=== PATIENT | female | born 1990 | race Caucasian/White ===

== ENCOUNTER 2017-07-11 07:48 | Emergency (ER) | payer BC, SELFPAY ==
[2017-07-11 07:49] VITALS: BP 123/97; PULSE 68; RESP 16; TEMP 36.9; O2SAT 100; BMI 29.2
[2017-07-11 08:22] LABS: Absolute Lymphocyte Count 1.64 X10^3/ul (0.83-4.51); Absolute Neutrophil Count 7.8 X10^3/uL (2.0-7.7); Basophil# 0.03 X10^3/uL; Basophil% 0.3 % (0-1); Eosinophil# 0.21 X10^3/uL; Hematocrit 39.1 % (37-47); Hemoglobin 13.3 g/dl (12.0-15.0); Lymphocyte # 1.64 X10^3/ul (4.0); Lymphocyte % 15.6 % (19-41); Mean Corpuscular Hgb 28.9 pg (27.0-32.0); Mean Corpuscular Volume 84.8 fL (81-99); Mean Platelet Vol. 10.1 fl (6.2-12.0); Monocyte# 0.81 X10^3/uL; Monocyte% 7.7 % (0-10); Neutrophil # 7.75 X10^3/uL (2.7-7.7); Platelet Count 316 K/mm3 (150-450); RBC Distribution Width CV 12.6 % (11.6-14.6); RBC Distribution Width SD 38.1 fl (35.1-43.9); Red Blood Count 4.61 M/mm3 (4.2-5.4); White Blood Count 10.5 K/mm3 (4.4-11.0)
[2017-07-11 08:23] LABS: POSITIVE COUNT NO; POSITIVE DIFFERENTIAL NO; POSITIVE MORPHOLOGY NO
--- NOTE | 2017-07-11 08:29 | ED.VISSUMM ---
- ER Visit Summary Date of Service: 07/11/17 Chief Complaint: Pain swelling anterior neck History of Present Illness: The patient is a 26 F who presents because of pain and swelling anterior neck. The triage note was read. Patient was asked specifically if there is change in voice she and her mother state no. She has had no drooling. When she replied she had difficulty swallowing, she was asked to clarify. She states the anterior portion of her neck feels full and tight when she swallows. She is able to swallow. There is discomfort when she swallows. She has had no discomfort or difficulty breathing. She denies any dental pain. She denies any pain tip of her tongue. She denies difficulty opening or closing her mouth completely. There is no history rheumatic fever, murmur, MVP, SBE or being on any meds that are immunosuppressive. She denies history of IV drug use. She is presently taken amoxicillin for otitis media. She was seen at the [facility] urgent care last evening and diagnosed with otitis media. She denies any ear pain. She denies rhinorrhea or postnasal drainage. She denies fever, chills or night sweats. She denies any recent illness. She denies any double vision, blurred vision or loss of vision. She denies chest pain or palpitations. She denies shortness of breath, dyspnea or cough. Physical Examination: Vital signs are unremarkable. Blood pressure is slightly elevated 123/97. She is anxious. Mother states she has history of anxiety attacks. Head is atraumatic and cephalic. Pupils equal round reactive. Extraocular muscles are intact. TMs are pearly white with climax noted. There may be slight retraction of the left TM. The left auditory canal is slightly red. There is no discomfort portion of the tragus or pulling on the auricle. There is no preauricular lymphadenopathy. Nares patent without drainage or abnormality. Uvula is midline with no erythema or exudate of posterior pharynx. There is no trismus. Trachea is midline and there is no discomfort with movement. There is no stridor to auscultation. There is a palpable mass submental region that is firm smooth mobile and tender. Heart is regular without murmur, gallop or rub. S1 and S2 are normal. Lungs are clear to auscultation with good movement of air bilaterally. There is no overlying evidence of cellulitis. Test Results: CBC is unremarkable. There are 75% segs no bands with a normal white count. Emergency Department Course and Treatment: Since patient is allergic to azithromycin she was administered 200 mg of clindamycin IV piggyback. CBC was obtained. Differential would include submental lymphadenopathy, sialolithiasis. Doubt Lui's angina since the floor the mouth is not firm and the tongue is not raised. Furthermore, she does not have any dental pain and there is no obvious dental pathology. Treatment Plan: Patient was reassessed at 0855. She is no longer crying. She is talking without any difficulty. She was informed that she would be placed on antibiotic. In the event that this is secondary to a stone in her salivary gland recommended lemon drops. Disposition: Discharged to home with prescription for clindamycin, appropriate home-going instructions and outpatient follow-up. Impression: Submental lymphadenopathy This note was generated with [employer] dictation software. It may contain incorrect words, spelling, and punctuation that were not noted in review of the chart prior to signing ED Disposition - Plan for ED Patient: Disposition: Home or Assisted Living Chief Complaint: Sore Throat Instructions: ED Cervical Adenitis Abx Tx, ED Sublingual Gland Obstruction Prescriptions: Clindamycin HCl 300 mg PO 4X/DAY #30 cap Referrals: Evelyn Disla MD [Primary Care Provider] - 2 Days Additional Instructions: Return if there is a change in your voice, you feel your tongue is elevated, inability to open or close her mouth completely, difficulty swallowing your own secretions or difficulty breathing/noisy breathing.
[2017-07-11 09:56] VITALS: BP 125/74; PULSE 81; RESP 16; O2SAT 98
--- NOTE | 2017-07-11 09:56 | ED.RN ---
THIS NURSE REVIEWED D/C INSTRUCTIONS WITH PT. PT VERBALIZED UNDERSTANDING OF INSTRUCTIONS. IV D/C. IV CATHETER INTACT. PT TOLERATED WELL. PT DENIES FURTHER NEEDS OR QUESTION AT THIS TIME.
== END 2017-07-11 09:57 | disposition home or self-care (01) ==
PROVIDERS: Emergency Provider Emergency Medicine; Family Provider Internal Medicine; PCP Internal Medicine
DX: R59.0 Localized enlarged lymph nodes (principal); H66.90 Otitis media, unspecified, unspecified ear; F41.0 Panic disorder [episodic paroxysmal anxiety]; Z88.1 Allergy status to other antibiotic agents
CPT/HCPCS: 85025; 96365; 99283; J7050; A4216

== ENCOUNTER 2017-07-11 21:30 | Emergency (ER) | payer BC, SELFPAY ==
[2017-07-11 21:30] VITALS: BP 149/74; PULSE 93; RESP 20; TEMP 36.9; O2SAT 100; BMI 29.7
[2017-07-11 21:46] VITALS: PULSE 71; RESP 24; O2SAT 100
--- NOTE | 2017-07-11 21:51 | EKG12_ITS ---
Test Reason : CP Blood Pressure : / mmHG Vent. Rate : 076 BPM Atrial Rate : 076 BPM P-R Int : 144 ms QRS Dur : 078 ms QT Int : 372 ms P-R-T Axes : 066 041 040 degrees QTc Int : 418 ms Normal sinus rhythm with sinus arrhythmia Normal ECG Confirmed by SU BRODERICK, CHEYENNE ([id number]), offline editor IZABELA TAPIA ([id number] on 07/14/2017 1:25:59 PM Referred By: DYLAN Confirmed By:CHEYENNE BLUE MD
--- NOTE | 2017-07-11 21:51 | RAD_ITS ---
STUDY: X-RAY CHEST REASON FOR EXAM: Female, 26 years old. Chest pain and difficulty breathing. TECHNIQUE: PA and lateral views of the chest. COMPARISON: June 02, 2014. FINDINGS: Cardiac monitoring leads are present. The lungs are clear and hyperexpanded. There is no demonstrated pleural abnormality. Normal size heart. Normal mediastinum and jacques. There is prominence of the pulmonary hilar arteries without peripheral pulmonary vascular congestion. Normal visualized aortic arch and descending thoracic aorta. Normal visualized thoracic spine. Normal visualized ribs, clavicles, and shoulders. There is no demonstrated abnormality of the visualized soft tissue structures of the upper abdomen. RAD/Chest PA and Lateral IMPRESSION: No radiographic evidence of acute cardiopulmonary disease. Electronically Signed: Emily Angel MD at 23:19 EDT , Service support ,
--- NOTE | 2017-07-11 22:01 | NURSING ---
NO OLD EKG
[2017-07-11] MEDS: 0.9% Normal Saline 1,000 ML 150 ML IV (22:12)
[2017-07-11] MEDS: Ondansetron 4 MG/2 ML Vial IV (22:16)
[2017-07-11] MEDS: Morphine 4 MG/ML Syringe IV (22:16)
[2017-07-11 22:23] LABS: Basophil# 0.03 X10^3/uL; Basophil% 0.2 % (0-1); Eosinophil# 0.16 X10^3/uL; Eosinophils% 1.2 % (0-5); Hematocrit 39.1 % (37-47); Hemoglobin 13.6 g/dl (12.0-15.0); Lymphocyte % 12.6 % (19-41); Mean Corp Hgb Conc 34.8 g/gl (32-36); Mean Corpuscular Hgb 29.4 pg (27.0-32.0); Mean Corpuscular Volume 84.6 fL (81-99); Mean Platelet Vol. 10.2 fl (6.2-12.0); Monocyte# 0.57 X10^3/uL; Monocyte% 4.2 % (0-10); Neutrophil # 10.96 X10^3/uL (2.7-7.7); Neutrophil % 81.3 % (47-70); Platelet Count 334 K/mm3 (150-450); RBC Distribution Width CV 12.6 % (11.6-14.6); RBC Distribution Width SD 38.1 fl (35.1-43.9); Red Blood Count 4.62 M/mm3 (4.2-5.4); White Blood Count 13.5 K/mm3 (4.4-11.0)
[2017-07-11 22:31] LABS: POSITIVE COUNT NO; POSITIVE DIFFERENTIAL NO; POSITIVE MORPHOLOGY NO
[2017-07-11 22:40] LABS: AST(SGOT) 21 U/L (15-37); Alanine Aminotransfer ALT/SGPT 22 U/L (13-56); Albumin, Serum 3.9 g/dL (3.2-5.0); Alkaline Phosphatase 69 U/L (45-117); Anion Gap 10 (5-15); BUN 9 mg/dL (7-18); BUN/Creat Ratio 14.5 RATIO (10-20); Bilirubin, Direct 0.18 mg/dL (0.00-0.30); Chloride 104 mmol/L (98-107); Creatinine, Serum 0.62 mg/dL (0.55-1.02); EST Glomerular Filtration Rate 123 mL/min (>60); Est Glom Filt Rate - Afr Amer 149 mL/min (>60); Estimated Creatinine Clearance 103.76 ml/min; Globulin 3.8 g/dL (2.2-4.2); Glucose 131 mg/dL (74-106); Lipase 219 U/L (73-393); Potassium 3.4 mmol/L (3.5-5.1); Protein, Total 7.7 g/dL (6.4-8.2); Sodium Level 139 mmol/L (136-145)
[2017-07-11 22:43] LABS: Pregnancy, Serum, hCG Quali. NEGATIVE Negative (0-9 Nonpreg)
--- NOTE | 2017-07-11 23:19 | ED.VISSUMM ---
- ER Visit Summary Date of Service: 07/11/17 Chief Complaint: Chest pain and shortness of breath History of Present Illness: The patient is a 26 F reports onset of shortness of breath and chest pain around noon today. Patient points to the epigastric area and up into the sternum region. Patient was seen in the ER this morning for swelling in the anterior neck. She was diagnosed with some mental lymphadenopathy and encouraged to eat lemon candy and was prescribed clindamycin. Patient states that she took 1 dose of clindamycin here in the emergency this morning and 2 more doses at home. Pain started around noon but worsened tonight when she took another dose of clindamycin before bed. Past history is significant for anxiety. Physical Examination: Blood pressure is 149/74, temperature 98.5, heart rate 93, respiratory rate 20, pulse ox 100% on room air. Patient's lying back with her head elevated approximately 45?. She speaking with a strong voice. Head neck examination does reveal moderate swelling along the undersurface of her chin. She has no tongue edema. There is no tongue elevation. She has strong voice and is tolerating secretions well. Heart is regular rate and rhythm. Lung sounds are clear. Abdomen is soft with tenderness in the epigastric region. There is no guarding or rebound. Lower external examination was no calf tenderness or edema. Patient is alert and conversant. Test Results: EKG is sinus at 76 with no sign of acute ischemia. Two-view chest x-ray is normal. CBC was a white count 13.5 with 81% neutrophils. Chemistry studies are significant for potassium of 3.4 and a glucose of 131. LFTs and lipase are normal. test is negative. Emergency Department Course and Treatment: On repeat evaluation patient is resting comfortably. Head of the bed is still elevated approximately 45? and she is tolerating secretions well and has a strong voice. I believe her symptoms tonight are secondary to gastritis triggered from the clindamycin. She does state that she is taking with food, the patient's symptoms progressively worsened with each dose of clindamycin. She will be switched to penicillin. Encouraged to eat lemon candies. She is referred to ENT for follow-up as needed. Test results were discussed with the patient and mother at bedside who are all in agreement with the plan. Treatment Plan: [] Disposition: Discharge Impression: 1. Gastritis with reflux 2. Submental lymphadenopathy This note was generated with [employer] dictation software. It may contain incorrect words, spelling, and punctuation that were not noted in review of the chart prior to signing ED Disposition - Plan for ED Patient: Chief Complaint: Chest Pain Referrals: Evelyn Disla MD [Primary Care Provider] -
--- NOTE | 2017-07-11 23:23 | ED.DCSUM_ITS ---
- ER Visit Summary Date of Service: 07/11/17 Chief Complaint: Chest pain and shortness of breath History of Present Illness: The patient is a 26 F reports onset of shortness of breath and chest pain around noon today. Patient points to the epigastric area and up into the sternum region. Patient was seen in the ER this morning for swelling in the anterior neck. She was diagnosed with some mental lymphadenopathy and encouraged to eat lemon candy and was prescribed clindamycin. Patient states that she took 1 dose of clindamycin here in the emergency this morning and 2 more doses at home. Pain started around noon but worsened tonight when she took another dose of clindamycin before bed. Past history is significant for anxiety. Physical Examination: Blood pressure is 149/74, temperature 98.5, heart rate 93 , respiratory rate 20, pulse ox 100% on room air. Patient's lying back with her head elevated approximately 45?. She speaking with a strong voice. Head neck examination does reveal moderate swelling along the undersurface of her chin. She has no tongue edema. There is no tongue elevation. She has strong voice and is tolerating secretions well. Heart is regular rate and rhythm. Lung sounds are clear. Abdomen is soft with tenderness in the epigastric region. There is no guarding or rebound. Lower external examination was no calf tenderness or edema. Patient is alert and conversant. Test Results: EKG is sinus at 76 with no sign of acute ischemia. Two-view chest x-ray is normal. CBC was a white count 13.5 with 81% neutrophils. Chemistry studies are significant for potassium of 3.4 and a glucose of 131. LFTs and lipase are normal. test is negative. Emergency Department Course and Treatment: On repeat evaluation patient is resting comfortably. Head of the bed is still elevated approximately 45? and she is tolerating secretions well and has a strong voice. I believe her symptoms tonight are secondary to gastritis triggered from the clindamycin. She does state that she is taking with food, the patient's symptoms progressively worsened with each dose of clindamycin. She will be switched to penicillin. Encouraged to eat lemon candies. She is referred to ENT for follow -up as needed. Test results were discussed with the patient and mother at bedside who are all in agreement with the plan. Treatment Plan: [] Disposition: Discharge Impression: 1. Gastritis with reflux 2. Submental lymphadenopathy This note was generated with [employer] dictation software. It may contain incorrect words, spelling, and punctuation that were not noted in review of the chart prior to signing ED Disposition - Plan for ED Patient: Chief Complaint: Chest Pain Referrals: Evelyn Disla MD [Primary Care Provider] -
--- NOTE | 2017-07-11 23:23 | ED.DEP ---
ED Disposition - Plan for ED Patient: Disposition: Home or Assisted Living Chief Complaint: Chest Pain Instructions: ED Gastritis Prescriptions: Penicillin V Potassium 500 mg PO 4X/DAY #40 tablet Referrals: Evelyn Disla MD [Primary Care Provider] - Juan R Pabon MD [STAFF PHYSICIAN] - As soon as possible
[2017-07-11 23:39] VITALS: BP 138/74; PULSE 78; RESP 18; O2SAT 100
== END 2017-07-11 23:40 | disposition home or self-care (01) ==
PROVIDERS: Emergency Provider Emergency Medicine; Family Provider Internal Medicine; PCP Internal Medicine
DX: K29.70 Gastritis, unspecified, without bleeding (principal); K21.9 Gastro-esophageal reflux disease without esophagitis; R59.1 Generalized enlarged lymph nodes; R06.00 Dyspnea, unspecified; F41.9 Anxiety disorder, unspecified; Z79.2 Long term (current) use of antibiotics
CPT/HCPCS: 71046; 80048; 80076; 83690; 84703; 85025; 93005; 96361; 96365; 96375; 99284; J7030; A4216; J2405; J3490

== ENCOUNTER 2018-06-08 15:26 | Emergency (ER) | payer BC, SELFPAY ==
[2018-06-08 15:27] VITALS: BP 126/85; PULSE 112; RESP 16; TEMP 38; O2SAT 99; BMI 27.4
--- NOTE | 2018-06-08 15:58 | ED.VISSUMM ---
- ER Visit Summary Date of Service: 06/08/18 Chief Complaint: Fever History of Present Illness: The patient is a 27 F resents for fever for 2 days. 2 days ago early in the morning, patient woke up with a scratchy throat. She then developed a dry cough and fever. Yesterday her cough became moist and she states her lungs hurt. She indicates discomfort along the mid-chest. She has associated rhinorrhea, one episode of posttussive emesis, myalgias, neck pain, headache and abdominal pain. Patient has tried Tylenol with some improvement of her fever. She did not get a flu shot this year. She denies any medical problems. Physical Examination: Vital signs: Febrile from 100.4, hemodynamically stable,tachycardic at 112, no hypoxia on room air General: well nourished, well developed, in no distress Skin: warm, moist, no rash, no pallor HEENT: normocephalic and atraumatic; PERRL, EOMI, moist mucous membranes, no posterior oropharyngeal erythema or exudate, uvula midline, neck is supple and nontender, no meningismus, no lymphadenopathy noted Cardiovascular: Tachycardic rate and rhythm without murmurs, no peripheral edema, 2+ pulses all distal extremities Respiratory: No increased work of breathing, lungs are clear to auscultation bilaterally, no rales, rhonchi or wheezing, frequent harsh moist cough Abdominal: Abdomen is soft, nontender with normoactive bowel sounds, no guarding or rebound, no masses MSK: Moves all extremities, no deformities, normal strength Neuro: Awake and alert, oriented ?4. No facial droop, sensation and motor function intact and symmetric Test Results: Clinical Impression(s) from Imaging Studies Chest X-Ray 06/08/18 16:10 IMPRESSION: No acute cardiopulmonary process. Electronically Signed: Reggie Clement MD at 16:33 EST Tel , Service support , Medications Given Discontinued Medications Ibuprofen (Motrin) 600 mg PO X1 ONE Stop: 06/08/18 15:59 Last Admin: 06/08/18 16:06 Dose: 600 mg Emergency Department Course and Treatment: Patient presents with clinical symptoms and examination consistent with influenza. Because she is outside of the 48-hour treatment window Tamiflu and thus a flu test will not change her treatment, flu was not performed. Because patient is concerned about blood in her mucus, chest x-ray was performed to rule out pneumonia. Chest x-ray showed no infiltrates. Most likely patient's blood-tinged mucus is secondary to her frequent bouts of coughing resulting in mucosal irritation of the airway and throat. Patient was given Motrin for fever and discomfort. On reevaluation she was feeling better and is still well-appearing. She will be discharged home with instructions for symptomatic control. Given a prescription for Tessalon Perles to use for cough. Patient is to return if any worsening of her condition. Treatment Plan: [] Disposition: [] Impression: Influenza This note was generated with [employer] dictation software. It may contain incorrect words, spelling, and punctuation that were not noted in review of the chart prior to signing ED Disposition - Plan for ED Patient: Disposition: Home or Assisted Living Instructions: ED Flu Prescriptions: Benzonatate [Tessalon Perle] 100 mg PO TID PRN PRN #20 cap PRN Reason: Cough Referrals: Evelyn Disla MD [Primary Care Provider] - 1 Week if not improving Additional Instructions: Drink plenty of fluids to stay hydrated. Use ibuprofen or acetaminophen as needed for fever and discomfort. Use the Tessalon Perles as needed for cough. If you have any worsening of your condition or any new concerning symptoms, please return immediately to the emergency department for another evaluation.
[2018-06-08] MEDS: Ibuprofen 600 MG Tablet PO (16:06)
--- NOTE | 2018-06-08 16:10 | RAD_ITS ---
STUDY: X-RAY CHEST REASON FOR EXAM: Female, 27 years old. Fever, shortness of breath, cough, sore throat, pain in the neck and head and lungs. 3 days. TECHNIQUE: PA and lateral chest COMPARISON: 07/11/2017, 03/15/2014. FINDINGS: The lungs are acutely clear, symmetrically and normally inflated with no apparent infiltrate. There is a calcified pulmonary nodule of the left upper lobe which is stable compared to prior imaging as far back as 2013 and consistent with old granulomatous disease. Normal cardiomediastinal silhouette, jacques and pleural margins. No acute osseous or upper abdominal process. RAD/Chest PA and Lateral IMPRESSION: No acute cardiopulmonary process. Electronically Signed: Reggie Clement MD at 16:33 EST Tel , Service support ,
[2018-06-08 16:47] VITALS: PULSE 109; RESP 18
== END 2018-06-08 16:47 | disposition home or self-care (01) ==
PROVIDERS: Emergency Provider Emergency Medicine; Family Provider Internal Medicine; PCP Internal Medicine
DX: J11.1 Influenza due to unidentified influenza virus with other respiratory manifestations (principal)
CPT/HCPCS: 71046; 99283

== ENCOUNTER → 2019-08-18 | Outpatient (CLI) | payer BC, SELFPAY | END | disposition home or self-care (01) | PROVIDERS: Referring Provider Obstetrics & Gynecology; Visit Provider Obstetrics & Gynecology | DX: Z34.81 Encounter for supervision of other normal pregnancy, first trimester (principal); Z11.3 Encounter for screening for infections with a predominantly sexual mode of transmission ==

== ENCOUNTER → 2019-08-23 | Outpatient (CLI) | payer BC, SELFPAY ==
[2019-08-23 15:17] LABS: Absolute Neutrophil Count 10.7 X10^3/uL (2.0-7.7); Basophil# 0.07 X10^3/uL; Basophil% 0.5 % (0-1); Eosinophil# 0.15 X10^3/uL; Eosinophils% 1.1 % (0-5); Hematocrit 39.6 % (37-47); Hemoglobin 13.1 g/dL (12.0-15.0); Lymphocyte % 15.9 % (19-41); Mean Corp Hgb Conc 33.1 g/dL (32-36); Mean Corpuscular Volume 81.5 fL (81-99); Mean Platelet Vol. 10.2 fl (6.2-12.0); Monocyte# 0.62 X10^3/uL; Monocyte% 4.5 % (0-10); NRBC Flagged by Analyzer 0 % (0-5); Neutrophil # 10.71 X10^3/uL (2.7-7.7); Neutrophil % 77.4 % (47-70); Platelet Count 382 K/mm3 (150-450); RBC Distribution Width CV 13.6 % (11.6-14.6); RBC Distribution Width SD 39.9 fl (35.1-43.9); Red Blood Count 4.86 M/mm3 (4.2-5.4); White Blood Count 13.8 K/mm3 (4.4-11.0)
[2019-08-23 15:38] LABS: Color, Urine Yellow (Yellow); Glucose, Dipstick Normal (Normal); Ketone-Dipstick Negative (Negative); Leukocyte Esterase-Dipstick 100 /ul (Negative); Nitrite-Dipstick Negative (Negative); Occult Blood-Urine Negative /ul (Negative); Protein-Dipstick Negative (Negative); Urine Bilirubin Dipstick Negative (Negative); Urine Clarity Clear (Clear); Urine Urobilinogen Normal (Normal)
[2019-08-23 15:45] LABS: Amphetamine Urine VISTA NEGATIVE (<1000 ng/mL); Barbiturate Urine VISTA NEGATIVE (< 200 ng/mL); Benzodiazepine Urine VISTA NEGATIVE (< 200 ng/mL); Cocaine Urine VISTA NEGATIVE (< 300 ng/mL); Ecstacy Urine VISTA NEGATIVE (< 500 ng/mL); Methadone Urine VISTA NEGATIVE (< 300 ng/mL); PCP Urine VISTA NEGATIVE (< 25 ng/mL); THC Urine VISTA NEGATIVE (< 50 ng/mL); Vista UDS pH Range 5
[2019-08-23 15:53] LABS: Thyroid Stim Hormone (TSH) 1.38 uIU/mL (0.358-3.74)
[2019-08-23 18:10] LABS: Chlamydia Trachomatis by PCR Negative (Negative); Neisserai gonorrhoeae by PCR Negative (Negative); Probe Check PASS; Sample Adequacy Control PASS; Specimen Processing Control PASS
[2019-08-24 08:28] LABS: HIV - WCH Non-Reactive (Nonreactive); Hepatitis B Surface Antigen Non-Reactive (Nonreactive); Hepatitis C Antibody Non-Reactive (Nonreactive); Rubella IgG 85.5 IU/mL; Vitamin D,25 Hydroxy 25.8 ng/mL
[2019-08-25 08:07] LABS: Prenatal RPR NONREACTIVE (NONREACTIVE)
== END | disposition home or self-care (01) ==
PROVIDERS: Referring Provider Obstetrics & Gynecology; Visit Provider Obstetrics & Gynecology
DX: O26.891 Other specified pregnancy related conditions, first trimester (principal); E75.02 Tay-Sachs disease; E55.9 Vitamin D deficiency, unspecified; Z3A.00 Weeks of gestation of pregnancy not specified; Z11.3 Encounter for screening for infections with a predominantly sexual mode of transmission
CPT/HCPCS: 80307; 81002; 82306; 84443; 85025; 86703; 86762; 86803; 87340; 87491; 87591

== ENCOUNTER → 2019-10-28 | Outpatient (CLI) | payer BC, SELFPAY | END | disposition home or self-care (01) | LOC: LABSPEC 11:06 | PROVIDERS: Referring Provider Obstetrics & Gynecology; Visit Provider Obstetrics & Gynecology | DX: Z11.59 Encounter for screening for other viral diseases (principal) | CPT/HCPCS: 87635; G2023; U0003 ==

== ENCOUNTER → 2019-12-28 14:07 | Outpatient (CLI) | payer BC, SELFPAY ==
[2019-12-28 17:33] LABS: Hematocrit 32.8 % (37-47); Hemoglobin 10.7 g/dL (12.0-15.0); Mean Corp Hgb Conc 32.6 g/dL (32-36); Mean Corpuscular Hgb 27.4 pg (27.0-32.0); Mean Corpuscular Volume 83.9 fL (81-99); Mean Platelet Vol. 10.4 fl (6.2-12.0); Platelet Count 356 K/mm3 (150-450); RBC Distribution Width SD 41.9 fl (35.1-43.9); Red Blood Count 3.91 M/mm3 (4.2-5.4); White Blood Count 15.8 K/mm3 (4.4-11.0)
[2019-12-28 17:46] LABS: Glucose Challenge Gest 1H 50g 83 mg/dL (70-140)
== END ==
PROVIDERS: Visit Provider Obstetrics & Gynecology
DX: Z34.83 Encounter for supervision of other normal pregnancy, third trimester (principal)
CPT/HCPCS: 36415; 82950; 85027

== ENCOUNTER 2020-01-24 07:37 | Outpatient (CLI) | payer BC, SELFPAY ==
[2020-01-24 07:47] VITALS: BMI 40.5
[2020-01-24 08:02] VITALS: TEMP 36.5; O2SAT 96
[2020-01-24 08:05] VITALS: BP 109/57; PULSE 78
[2020-01-24 10:56] VITALS: TEMP 36.4; O2SAT 96
[2020-01-24 10:57] VITALS: BP 104/53; PULSE 76
--- NOTE | 2020-01-25 18:48 | OB.TRI.HP_ITS ---
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 Very upset and wanted monitored. Allergies azithromycin [From Zithromax Z-Anuel] Adverse Reaction (Verified 06/08/18 15:27) itching throat Review of Systems Constitutional: Denies: Chills, Fever, Weight Change HEENT: Denies: Head Aches, Sinus Congestion, Sinus Drainage Cardiovascular: Denies: Chest Pain, Palpitations Respiratory: Denies: Cough, Shortness of breath at rest, Sputum production Gastrointestinal: Denies: Abdominal Pain, Nausea, Vomiting Genitourinary: Denies: Dysuria Musculoskeletal: Denies: Joint Pain, Joint Tenderness Skin: Denies: Rash, Wounds Neurological: Denies: Numbness, Tingling, Focal weakness Psychiatric: Denies: Anxiety, Depression, Homicidal Ideations, Suicidal Ideations Hematologic/ Lymphatic: Denies: Easy Bruising, Easy Bleeding Physical Exam Vitals: Vital Signs Temp Pulse BP Pulse Ox 97.6 F L 76 104/53 L 96 01/24/20 10:56 01/24/20 10:57 01/24/20 10:57 01/24/20 10:56 General: Alert, Oriented x3, No apparent distress HEENT: Atraumatic, Normocephalic. Negative for: Thyromegaly, Lymphadenopathy Cardiovascular: Regular rate, Regular Rhythm Lungs: Clear to auscultation Abdomen: Bowel Sounds Present, Gravid Neurological: Deep Tendon Reflexes 2+/4 and Symmetrical, Neuro grossly intact VETERINARY TECHNOLOGIST: Normal external genitalia. Negative for: Vulvar lesions Estimated gestational size: Appropriate for gestational size NST - FHR Rate Baby A Baseline: 130 Variability:: Moderate Accelerations:: 15 x 15 Decelerations:: None NST Reactive:: Yes FHR Category:: Category I Uterine Activity:: quiet Impression/Plan A/P: at 32 weeks gestation, post fall NST reactive, Category I: monitored from 2917-5534 Good FM felt by patient throughout monitoring Discharge home and follow up with OB clinic as needed
== END 2020-01-24 11:05 | disposition home or self-care (01) ==
PROVIDERS: Visit Provider Student in an Organized Health Care Education/Training Program
DX: Z04.3 Encounter for examination and observation following other accident (principal); Z3A.32 32 weeks gestation of pregnancy
CPT/HCPCS: 59025; 59050; 99218; G0378

== ENCOUNTER → 2020-02-21 16:08 | Outpatient (CLI) | payer BC, SELFPAY ==
[2020-01-24 07:47] VITALS: BMI 40.5
[2020-02-21 18:00] LABS: Hematocrit 33.1 % (37-47); Hemoglobin 10.7 g/dL (12.0-15.0); Mean Corp Hgb Conc 32.3 g/dL (32-36); Mean Corpuscular Hgb 25.7 pg (27.0-32.0); Mean Corpuscular Volume 79.6 fL (81-99); Mean Platelet Vol. 10.1 fl (6.2-12.0); Platelet Count 373 K/mm3 (150-450); RBC Distribution Width CV 15.1 % (11.6-14.6); RBC Distribution Width SD 43.1 fl (35.1-43.9); Red Blood Count 4.16 M/mm3 (4.2-5.4); White Blood Count 17.9 K/mm3 (4.4-11.0)
[2020-02-21 18:01] LABS: Protein, Urine (Random) 8.1 mg/dL (<11.9); Protein:Creat Ratio 199 mg/g CRE (0-200)
[2020-02-21 18:06] LABS: ALB/GLOB Ratio 0.6 RATIO (0.9-2.4); AST(SGOT) 14 U/L (15-37); Alanine Aminotransfer ALT/SGPT 18 U/L (13-56); Albumin, Serum 2.6 g/dL (3.2-5.0); Alkaline Phosphatase 117 U/L (45-117); Anion Gap 8 (5-15); BUN 8 mg/dL (7-18); BUN/Creat Ratio 15.2 RATIO (10-20); Calcium,Total 9.2 mg/dL (8.5-10.1); Chloride 106 mmol/L (98-107); Creatinine, Serum 0.53 mg/dL (0.55-1.02); EST Glomerular Filtration Rate 145 mL/min (>60); Est Glom Filt Rate - Afr Amer 176 mL/min (>60); Globulin 4.1 g/dL (2.2-4.2); Glucose 88 mg/dL (74-106); LDH 160 U/L (84-246); Potassium 3.9 mmol/L (3.5-5.1); Protein, Total 6.7 g/dL (6.4-8.2); Sodium Level 136 mmol/L (136-145)
== END ==
PROVIDERS: Visit Provider Student in an Organized Health Care Education/Training Program
DX: Z36.85 Encounter for antenatal screening for Streptococcus B (principal)
CPT/HCPCS: 36415; 80053; 82570; 83615; 84156; 85027; 87081; 87086; 87088

== ENCOUNTER → 2020-03-08 17:33 | Outpatient (CLI) | payer BC, SELFPAY | PROVIDERS: Referring Provider Student in an Organized Health Care Education/Training Program; Visit Provider Student in an Organized Health Care Education/Training Program | DX: Z03.818 Encounter for observation for suspected exposure to other biological agents ruled out (principal) | CPT/HCPCS: 87635; C9803; U0003 ==

== ENCOUNTER 2020-03-16 14:20 | Inpatient (IN) | payer BC, SELFPAY ==
[2020-03-16] VITALS (7 sets, daily range): BP systolic 110–125; BP diastolic 57–83; PULSE 64–107; TEMP 36.9–37.4; O2SAT 83–98; BMI 44.1
[2020-03-16] MEDS: 0.9% Saline Lock 10 ML Syringe IV (15:14)
[2020-03-16 15:19] LABS: Absolute Lymphocyte Count 1.91 X10^3/uL (0.83-4.51); Absolute Neutrophil Count 11.2 X10^3/uL (2.0-7.7); Basophil# 0.07 X10^3/uL; Basophil% 0.5 % (0-1); Eosinophils% 0.7 % (0-5); Hematocrit 33.7 % (37-47); Hemoglobin 10.8 g/dL (12.0-15.0); Lymphocyte # 1.91 X10^3/ul (4.0); Lymphocyte % 12.7 % (19-41); Mean Corpuscular Hgb 25.6 pg (27.0-32.0); Mean Corpuscular Volume 79.9 fL (81-99); Mean Platelet Vol. 10.4 fl (6.2-12.0); Monocyte# 1.08 X10^3/uL; Monocyte% 7.2 % (0-10); NRBC Flagged by Analyzer 0 % (0-5); Neutrophil # 11.21 X10^3/uL (2.7-7.7); Neutrophil % 74.4 % (47-70); Platelet Count 340 K/mm3 (150-450); RBC Distribution Width CV 16.1 % (11.6-14.6); RBC Distribution Width SD 46.1 fl (35.1-43.9); Red Blood Count 4.22 M/mm3 (4.2-5.4)
[2020-03-16] MEDS: miSOPROStol 25 MCG TABLET VAGINAL ×2 (16:01→20:26)
--- NOTE | 2020-03-16 17:46 | HP.PCM_ITS ---
History and Physical Date of Admission: 03/16/20 HPI: 29 yo at 40w1d, with ROSENDA 03/15/20 by LMP, presents for elective term induction of labor. Denies VB, LOF, or contractions. + FM. Denies SANTIAGO, vision changes, chest pain,d yspnea, nausea/emesis. This is complicated by: obesity Obstetrical History G1 current Past Medical History Anxiety/depression Medications PNV, fioricet Past Surgical History Denies Social History Tobacco use: denies Alcohol use: denies Illicit drug use: denies Labs Blood type: O pos Rubella: immune Hep B: neg HIV: neg RPR: nonreactive GBS: neg 02/23 Allergies Tape, azithromycin --> difficulty breathing Review of Systems General: alert and oriented HEENT: _denies change of vision Heart/lungs: _denies CP, SOB GI: _denies nausea, vomiting, dysuria, diarrhea MSK: _denies calf pain, tenderness Physical Exam Vital Signs Temp Pulse BP 03/16/20 14:38 99.2 F H 90 122/83 H General: a&o x3, NAD HEENT: normocephalic, atraumatic Cardio: no JVD Resp: no increased work in breathing Abdomen: soft, gravid, nontender Extremities: minimal-moderate edema CE: 1 cm thick and high per RN FHT: 140mod shamar/+accel/no decel [place]: rare Labs Laboratory Tests 03/16/20 Range/Units 14:55 WBC 15.0 H (4.4-11.0) K/mm3 RBC 4.22 (4.2-5.4) M/mm3 Hgb 10.8 L (12.0-15.0) g/dL Hct 33.7 L (37-47) % MCV 79.9 L (81-99) fL MCH 25.6 L (27.0-32.0) pg MCHC 32.0 (32-36) g/dL RDW Std Deviation 46.1 H (35.1-43.9) fl RDW Coeff of Shamar 16.1 H (11.6-14.6) % Plt Count 340 (150-450) K/mm3 MPV 10.4 (6.2-12.0) fl Immature Gran % (Auto) 4.500 H (0.0-0.9) % Neut % (Auto) 74.4 H (47-70) % Lymph % (Auto) 12.7 L (19-41) % Gem % (Auto) 7.2 (0-10) % Eos % (Auto) 0.7 (0-5) % Baso % (Auto) 0.5 (0-1) % Absolute Neuts (auto) 11.2 H (2.0-7.7) X10^3/uL Absolute Lymphs (auto) 1.91 (0.83-4.51) X10^3/uL Nucleated RBC % 0 (0-5) % COVID neg 03/08 Assessment & Plan 29 yo at 40w1d, with ROSENDA 03/15/20 by LMP, presents for elective term induction of labor. Complicated by: obesity. Admit to L&D -Routine labor orders - Cytotec induction - GBS negative 02/23. COVID negative 03/08 - Anesthesia to see
[2020-03-16] MEDS: Lactated Ringers 1,000 ML 50 ML IV (21:44)
[2020-03-16] MEDS: Lactated Ringers 500 ML 999 ML IV (21:45)
[2020-03-16] MEDS: Acetaminophen 500 MG Tablet PO (22:47)
[2020-03-17] VITALS (49 sets, daily range): BP systolic 90–136; BP diastolic 43–82; PULSE 56–92; RESP 14–16; TEMP 36.2–37.4; O2SAT 96–100
[2020-03-17] MEDS: Lactated Ringers 500 ML 999 ML IV ×3 (01:13→10:30)
[2020-03-17] MEDS: miSOPROStol 25 MCG TABLET VAGINAL (01:42)
[2020-03-17] MEDS: fentaNYL 100 MCG/2 ML Ampul IV (04:43)
[2020-03-17] MEDS: fentaNYL-bupivacaine (epidural) 100 ML BAG EPIDURAL (08:34)
[2020-03-17] MEDS: Ondansetron 4 MG/2 ML Vial IV (08:47)
--- NOTE | 2020-03-17 10:01 | PCM.PN.BLA ---
Progress Note Pt seen and examined. Now with epidural. Had hot spot - being redosed, feeling better. SROM light mec. Internals placed per RN. CE 80/-3. FHR: 150/mod etienne/+accel/intermittent late decel. [place] q2-5. Plan: start pitocin after 20 min cat I tracing. STROKE Vital Signs/Narrative: Vital Signs Temp Pulse BP Pulse Ox 03/17/20 08:58 98.4 F 73 107/58 L 03/17/20 08:53 62 108/59 L 03/17/20 08:49 64 106/57 L 98 03/17/20 08:44 66 116/69 98 03/17/20 08:41 65 116/63 03/17/20 08:39 81 100 03/17/20 08:38 74 121/66 H 03/17/20 08:34 68 98 03/17/20 08:33 78 125/68 H 03/17/20 08:28 92 125/64 H 03/17/20 08:23 69 124/66 H 03/17/20 08:18 74 117/62 03/17/20 08:14 76 90/49 L 03/17/20 08:09 76 125/68 H 03/17/20 08:08 73 97 03/17/20 08:03 74 136/77 H 99 03/17/20 07:58 90 131/78 H 99 03/17/20 07:53 87 116/66 100 03/17/20 07:30 68 98 03/17/20 07:15 98.3 F 72 132/82 H 03/17/20 06:25 71 98
[2020-03-17] MEDS: Oxytocin 30 units/NS 500 ml 30 UNITS/500 ML IV.SOLN IV (10:02)
[2020-03-17] MEDS: Lactated Ringers 1,000 ML 200 ML IV (11:01)
[2020-03-17] MEDS: Sodium Citrate/Citric Acid 30 ML UDC PO (13:02)
[2020-03-17] MEDS: Cefazolin 2 GM in 0.9% Normal Saline 100 ML IV (13:07)
--- NOTE | 2020-03-17 13:59 | PCM.OPRPT ---
Delivery Classification: PATEL Final ROSENDA: 03/15/20 Final ROSENDA Source: LMP Gestational age: 40 Weeks and 2 Days Type of Anesthesia:: Epidural, Epidural/Supplement Date of Procedure: 03/17/20 Pre-Operative Diagnosis: Dodson intrauterine at 40 and 2 weeks, intolerance of labor. Post-Operative Diagnosis: Dodson intrauterine at 40 and 2 weeks, intolerance of labor. Indications: This is a 29-year-old G1, P0 at 40 weeks and 2 days who was admitted for induction of labor at term. Patient had received Cytotec and had progressed from 1 to 4 cm. Induction method and was changed to Pitocin, patient had spontaneous rupture of membranes with light thin meconium. Fetus was no longer tolerating induction of labor, unable to start or increase Pitocin. Due to this decision for primary section for intolerance of labor was made. All risks, benefits, alternatives were discussed with patient. Risks include but are not limited to: Risk of bleeding to the point of transfusion, risk of infection, injury to surrounding tissue including bowel or bladder requiring prolonged Haider catheter use, VTE, ICU admission. Patient aware and consented. Description of Procedure: Patient was taken to the operating room after epidural was dosed. Patient was placed in the dorsal supine position with a left lateral tilt. Prepped and draped in usual sterile fashion. Pfannenstiel skin incision made with scalpel and carried down through subcutaneous tissue. Fascia nicked on either side of the midline using the scalpel and extended bilaterally using Rios scissors. Mayco clamps placed at the superior fascial edge which was tented up and underlying rectus muscles were dissected off bluntly and sharply at midline using Rios scissors. Mayco clamps were then moved to inferior fascial edge was tented up rectus muscles were dissected off bluntly and sharply at midline in a similar fashion. Rectus muscles were superiorly using hemostat and peritoneum was entered bluntly, extended bluntly. Bladder blade placed. Vesicouterine peritoneum identified and bladder flap created with Metzenbaums Metzenbaum scissors. Low transverse uterine incision made with scalpel and extended bluntly. Hand placed into the uterine cavity and with the assistance of gentle fundal pressure head delivered followed by body. No nuchal cord. Delayed cord clamping allowed as baby was crying and active. Baby handed to nursing. Spontaneous delivery of placenta. Uterus exteriorized and cleared of all clots. Uterus closed in a running locking stitch, followed by a second vertical imbricating stitch stitch. Hemostatic. Small 2 cm hematoma noted on the left edge of the hysterotomy closure which was stable in size. Uterus replaced into the abdomen. Hysterotomy confirmed to be hemostatic, 1 [id number] placed, hemostatic. Peritoneum identified and closed with a running stitch. Fascia closed with a running stitch. Subcutaneous tissue closed in running stitch. And skin closed with a running subcuticular stitch. At the end of the procedure all needle, lap, sponge counts were correct x3. IVFs 1L, EBL 700cc, UOP 300cc clear urine, APGARS 8/9. Cord Entanglement: None Esitmated Blood Loss (ml): 700 Infant Gender: Female (1 minute): 8 (5 minute): 9 Delayed cord clamping: Yes Antibiotic Given: Ancef 2 grams IV x1
[2020-03-17] MEDS: Oxytocin 30 units/NS 500 ml 30 UNITS/500 ML IV.SOLN 167 UNITS IV (14:20)
[2020-03-17] MEDS: Acetaminophen 500 MG Tablet 1000 MG PO ×2 (15:40→22:06)
[2020-03-17] MEDS: Lactated Ringers 1,000 ML 100 ML IV (17:15)
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
[2020-03-17] MEDS: Ketorolac 30 MG/ML Syringe IV (20:15)
[2020-03-17] MEDS: 0.9% Saline Lock 10 ML Syringe IV (20:16)
[2020-03-18] VITALS (11 sets, daily range): BP systolic 101–110; BP diastolic 48–65; PULSE 65–82; RESP 14–18; TEMP 36.2–37.2; O2SAT 96–100
[2020-03-18] MEDS: 0.9% Saline Lock 10 ML Syringe IV ×4 (00:21→14:02)
[2020-03-18] MEDS: Ketorolac 30 MG/ML Syringe IV ×3 (02:07→14:01)
[2020-03-18] MEDS: Acetaminophen 500 MG Tablet 1000 MG PO ×4 (04:09→22:20)
[2020-03-18 04:24] LABS: Hematocrit 29.3 % (37-47); Hemoglobin 9.3 g/dL (12.0-15.0); Mean Corp Hgb Conc 31.7 g/dL (32-36); Mean Corpuscular Volume 81.8 fL (81-99); Mean Platelet Vol. 9.7 fl (6.2-12.0); Platelet Count 221 K/mm3 (150-450); RBC Distribution Width CV 16.1 % (11.6-14.6); RBC Distribution Width SD 47.7 fl (35.1-43.9); Red Blood Count 3.58 M/mm3 (4.2-5.4); White Blood Count 14.9 K/mm3 (4.4-11.0)
--- NOTE | 2020-03-18 09:44 | PCM.PN.OB ---
Subjective: POD#1 Feeling well, up and walking around. Voiding spontaneously. Bottle feeding. Lochia minimal. Sore, but pain controlled. - Physical Exam Vitals/I&O's: Vital Signs Temp Pulse Resp BP Pulse Ox 98.6 F 82 16 101/57 L 98 03/18/20 07:30 03/18/20 09:09 03/18/20 09:09 03/18/20 07:30 03/18/20 09:09 Oxygen Delivery Method Room Air Weight: 109.6 kg Body Mass Index (BMI) 44.1 Intake and Output for Last 24 Hours 03/16/20 03/17/20 03/18/20 23:59 23:59 23:59 Intake Total 500.83 / 500.83 4226.65 / 4226.65 711.67 / 711.67 Output Total 100 / 100 2700 / 2700 3000 / 3000 Balance 400.83 / 400.83 1526.65 / 1526.65 -2288.33 / -2288.33 General: Alert, Oriented x3, No apparent distress HEENT: Atraumatic, Normocephalic Neck: Supple Lungs: Normal air movement Cardiovascular: Regular rate Abdomen: Soft - Mildly tender, dressing c/d, uterus 2 cm below umbilicus Extremities: Edema - +2 pedal edema Skin: No rashes Neurological: Cranial nerves II-XII grossly intact Psych/Mental Status: Normal Affect, Appropriate Laboratory Results 03/18/20 04:10: WBC 14.9 H, RBC 3.58 L, Hgb 9.3 L, Hct 29.3 L, MCV 81.8, MCH 26.0 L, MCHC 31.7 L, RDW Std Deviation 47.7 H, RDW Coeff of Shamar 16.1 H, Plt Count 221, MPV 9.7 Current Medications Acetaminophen (Acetaminophen 500 Mg Tablet) 1,000 mg PO Q6H BRITTNY Last Admin: 03/18/20 04:09 Dose: 1,000 mg Documented by: Bisacodyl (Bisacodyl 10 Mg Suppository) 10 mg RECTAL UD PRN PRN Reason: If no BM Diphenhydramine HCl (Diphenhydramine 25 Mg Capsule) 25 mg PO Q6H PRN PRN PRN Reason: ITCHING Stop: 03/18/20 14:09 Enoxaparin Sodium (Enoxaparin 40 Mg/0.4 Ml Syringe) 40 mg SC DAILY [facility] Hydrocortisone (Hydrocortisone 2.5% Crm) 1 applic TOPICAL TID PRN PRN; Protocol PRN Reason: Discomfort Lactated Ringer's () 1,000 mls @ 100 mls/hr IV .Q10H [facility] Last Admin: 03/18/20 03:29 Dose: Not Given Documented by: Ibuprofen (Ibuprofen 600 Mg Tablet) 600 mg PO Q6H [facility] Ketorolac Tromethamine (Ketorolac 30 Mg/Ml Syringe) 30 mg IV Q6H [facility] Stop: 03/18/20 14:01 Last Admin: 03/18/20 07:58 Dose: 30 mg Documented by: Methylergonovine Maleate (Methylergonovine 0.2 Mg/Ml Ampul) 0.2 mg IM X1 PRN PRN Reason: Uterine Atony Nalbuphine HCl (Nalbuphine 10 Mg/Ml Ampul) 5 mg IV Q3H PRN PRN PRN Reason: ITCHING Stop: 03/18/20 14:09 Naloxone HCl (Naloxone 0.4 Mg/Ml Syringe) 0.02 mg IV Q1M PRN PRN Reason: RR <10 and pt unresponsive Ondansetron HCl (Ondansetron 4 Mg/2 Ml Vial) 4 mg IV Q4H PRN PRN PRN Reason: Nausea Oxycodone HCl (Oxycodone 5 Mg Tablet) 5 - 10 mg PO Q4H PRN PRN PRN Reason: Pain Score 4-10 Prochlorperazine Edisylate (Prochlorperazine 10 Mg/2 Ml Vial) 10 mg IV Q6H PRN PRN PRN Reason: NAUSEA Senna/Docusate Sodium (Senna/Docusate Sodium 1 Tablet) 0 tablet PO DAILY [facility] Simethicone (Simethicone 80 Mg Tablet) 80 mg PO PCHS PRN PRN Reason: Indigestion/stomach pain Sodium Chloride (0.9% Saline Lock 10 Ml Syringe) 5 - 15 ml IV UD PRN PRN Reason: SALINE FLUSH Last Admin: 03/18/20 08:00 Dose: 10 ml Documented by: Medical Necessity - Tobacco Use Smoking Status: Never smoker Assessment/Plan All Active Problems 32 weeks gestation of (Acute) Falling (Acute) POD#1 s/p primary low transverse section for intolerance of labor remote from delivery. Anemia stable, iron on discharge. Bottle feeding. Pain controlled. Anxiety/depression, stable. Home tomorrow.
--- NOTE | 2020-03-18 09:47 | DCINST_ITS ---
Discharge Activity: Return to Normal Activity, May not drive while taking narcotic pain medications., May Shower May resume sexual activity in: 6 weeks Weight Bearing Status: Weight bearing as tolerated Call your doctor if your incision/area has: Continuous Slow Oozing, Sudden Increased Bleeding, Increased Pain/ Swelling, Increased Redness Call your doctor if you observe: Fever of 101 or Higher, Inability to urinate, Inability to have a bowel movement Additional Instructions: If you experience any of the following, contact your healthcare provider. * Bleeding that soaks a pad every hour for 2 hours * Fever 100.4 or higher * Unrelieved incision or abdominal pain * Swelling, redness, discharge or bleeding from your incision or episiotomy site * Your incision begins to separate * Problems urinating (including inability to urinate or burning while urinating). * Visual changes * Severe headache * Flu-like symptoms * Pain or redness in one of both of your breasts * Pain, warmth, tenderness or swelling in your legs, especially the calf area * Frequent nausea and vomiting * Symptoms of depression or anxiety If you experience any of the following, call 911 or go to the nearest Emergency Room. * Chest pain * Problems breathing * Seizure activity * Partial or complete paralysis of a body part, slurred speech, weakness or drooping of the face, or a sudden inability to walk or hold your balance Allergies/Adverse Reactions: Allergies adhesive tape Allergy (Verified 03/16/20 14:44) Rash azithromycin [From Zithromax Z-Anuel] Adverse Reaction (Verified 06/08/18 15:27) itching throat Medications to take at Discharge Vits [Prenatabs FA ] 1 tab PO DAILY 01/24/20 Vit D3/Vit K2/Calc Frutoborate [Move Free [id number]] 1 ea PO DAILY 03/16/20 Follow-Up: Call to make an appointment with your doctor for an incision check in 1-2 weeks. You will also need a 6 week post- follow up appointment. Test results from this visit will be discussed in further detail at your follow- up appointment, if applicable. Please Follow Up With: Gisselle Angel DO When: 2 week incision check, 6 week Primary Care Physician: Care Physician,No Primary [Primary Care Provider] - Proposed Discharge Date: 03/19/20
[2020-03-18] MEDS: Senna/Docusate Sodium 1 Tablet PO (10:17)
[2020-03-18] MEDS: Enoxaparin 40 MG/0.4 ML Syringe SC (10:18)
[2020-03-18] MEDS: oxyCODONE 5 MG Tablet PO ×2 (14:08→19:34)
[2020-03-18] MEDS: Ibuprofen 600 MG Tablet PO (19:33)
[2020-03-19] MEDS: Ibuprofen 600 MG Tablet PO ×2 (01:42→08:03)
[2020-03-19 01:43] VITALS: BP 103/49; PULSE 97; RESP 18; TEMP 36.7
[2020-03-19] MEDS: Acetaminophen 500 MG Tablet 1000 MG PO ×2 (04:22→10:22)
[2020-03-19 07:20] VITALS: BP 111/64; PULSE 80; RESP 16; TEMP 37.1
--- NOTE | 2020-03-19 07:34 | PN.OBGYN_ITS ---
Subjective: POD#2 Pain controlled, having some pain when getting up and stretching. Lochia minimal. - Physical Exam Vitals/I&O's: Vital Signs Temp Pulse Resp BP Pulse Ox 98.7 F 80 16 111/64 98 03/19/20 07:20 03/19/20 07:20 03/19/20 07:20 03/19/20 07:20 03/18/20 19:14 Oxygen Delivery Method Room Air Weight: 109.6 kg Body Mass Index (BMI) 44.1 Intake and Output for Last 24 Hours 03/17/20 03/18/20 03/19/20 23:59 23:59 23:59 Intake Total 4226.65 / 4226.65 711.67 / 711.67 Output Total 2700 / 2700 3000 / 3000 Balance 1526.65 / 1526.65 -2288.33 / -2288.33 General: Alert, Oriented x3, No apparent distress HEENT: Atraumatic, Normocephalic Neck: Supple Lungs: Normal air movement Cardiovascular: Regular rate Abdomen: Soft - Mildly tender, dressing c/d. Extremities: Edema - +1 edema pedal Neurological: Cranial nerves II-XII grossly intact Psych/Mental Status: Normal Affect, Appropriate Current Medications Acetaminophen (Acetaminophen 500 Mg Tablet) 1,000 mg PO Q6H [facility] Last Admin: 03/19/20 04:22 Dose: 1,000 mg Documented by: Bisacodyl (Bisacodyl 10 Mg Suppository) 10 mg RECTAL UD PRN PRN Reason: If no BM Enoxaparin Sodium (Enoxaparin 40 Mg/0.4 Ml Syringe) 40 mg SC DAILY [facility] Last Admin: 03/18/20 10:18 Dose: 40 mg Documented by: Hydrocortisone (Hydrocortisone 2.5% Crm) 1 applic TOPICAL TID PRN PRN; Protocol PRN Reason: Discomfort Ibuprofen (Ibuprofen 600 Mg Tablet) 600 mg PO Q6H [facility] Last Admin: 03/19/20 01:42 Dose: 600 mg Documented by: Methylergonovine Maleate (Methylergonovine 0.2 Mg/Ml Ampul) 0.2 mg IM X1 PRN PRN Reason: Uterine Atony Naloxone HCl (Naloxone 0.4 Mg/Ml Syringe) 0.02 mg IV Q1M PRN PRN Reason: RR <10 and pt unresponsive Ondansetron HCl (Ondansetron 4 Mg/2 Ml Vial) 4 mg IV Q4H PRN PRN PRN Reason: Nausea Oxycodone HCl (Oxycodone 5 Mg Tablet) 5 - 10 mg PO Q4H PRN PRN PRN Reason: Pain Score 4-10 Last Admin: 03/18/20 19:34 Dose: 10 mg Documented by: Prochlorperazine Edisylate (Prochlorperazine 10 Mg/2 Ml Vial) 10 mg IV Q6H PRN PRN PRN Reason: NAUSEA Senna/Docusate Sodium (Senna/Docusate Sodium 1 Tablet) 0 tablet PO DAILY BRITTNY Last Admin: 03/18/20 10:17 Dose: 2 tablet Documented by: Simethicone (Simethicone 80 Mg Tablet) 80 mg PO PCHS PRN PRN Reason: Indigestion/stomach pain Sodium Chloride (0.9% Saline Lock 10 Ml Syringe) 5 - 15 ml IV UD PRN PRN Reason: SALINE FLUSH Last Admin: 03/18/20 14:02 Dose: 10 ml Documented by: Medical Necessity - Tobacco Use Smoking Status: Never smoker Assessment/Plan All Active Problems 32 weeks gestation of (Acute) Falling (Acute) POD#2 s/p PLTCS. Pain controlled. Bottle feeding. Home today.
[2020-03-19] MEDS: Senna/Docusate Sodium 1 Tablet PO (10:11)
[2020-03-19] MEDS: Enoxaparin 40 MG/0.4 ML Syringe SC (10:12)
== END 2020-03-19 11:20 | disposition home or self-care (01) | DRG 788 ==
PROVIDERS: Admitting Provider Student in an Organized Health Care Education/Training Program; Referring Provider Student in an Organized Health Care Education/Training Program; Visit Provider Student in an Organized Health Care Education/Training Program
DX: O76 Abnormality in fetal heart rate and rhythm complicating labor and delivery (principal); O77.1 Fetal stress in labor or delivery due to drug administration; O77.0 Labor and delivery complicated by meconium in amniotic fluid; O42.02 Full-term premature rupture of membranes, onset of labor within 24 hours of rupture; O99.02 Anemia complicating childbirth; D64.9 Anemia, unspecified; O99.214 Obesity complicating childbirth; E66.9 Obesity, unspecified; Z3A.40 40 weeks gestation of pregnancy; Z37.0 Single live birth
CPT/HCPCS: 59025; 59050; 85025; 85027; 86850; 86900; 86901; 99218; J7120; A4216; G0378; J2405

== ENCOUNTER → 2020-04-24 | Outpatient (CLI) | payer BC, SELFPAY ==
[2020-03-16 14:42] VITALS: BMI 44.1
[2020-04-27 15:57] LABS: HPV Reflexed? NOT INDICATED
== END | disposition home or self-care (01) ==
LOC: LABSPEC 04-25 08:21
PROVIDERS: Visit Provider Student in an Organized Health Care Education/Training Program
DX: Z12.4 Encounter for screening for malignant neoplasm of cervix (principal)
CPT/HCPCS: 88175; G0145

== ENCOUNTER → 2022-03-03 | Outpatient (CLI) | payer OTHER, SELFPAY ==
[2022-03-03 15:49] LABS: Absolute Lymphocyte Count 2.77 X10^3/uL (0.83-4.51); Absolute Neutrophil Count 8.1 X10^3/uL (2.0-7.7); Basophil# 0.06 X10^3/uL; Basophil% 0.5 % (0-1); Eosinophil# 0.12 X10^3/uL; Hematocrit 37.2 % (37-47); Lymphocyte # 2.77 X10^3/ul (0.83-4.51); Lymphocyte % 23.3 % (19-41); Mean Corp Hgb Conc 34.9 g/dL (32-36); Mean Corpuscular Hgb 28.2 pg (27.0-32.0); Mean Corpuscular Volume 80.7 fL (81-99); Mean Platelet Vol. 9.6 fl (6.2-12.0); Monocyte# 0.79 X10^3/uL; Monocyte% 6.6 % (0-10); NRBC Flagged by Analyzer 0 % (0-5); Neutrophil # 8.11 X10^3/uL (2.7-7.7); Neutrophil % 68.1 % (47-70); Platelet Count 401 K/mm3 (150-450); RBC Distribution Width CV 13.4 % (11.6-14.6); Red Blood Count 4.61 M/mm3 (4.2-5.4); White Blood Count 11.9 K/mm3 (4.4-11.0)
[2022-03-04 08:58] LABS: HIV - WCH Non-Reactive (Nonreactive); Hepatitis B Surface Antigen Non-Reactive (Nonreactive); Hepatitis C Antibody Non-Reactive (Nonreactive); Rubella IgG Reactive (Nonreactive); Syphilis Antibodies Non-reactive
[2022-03-05 17:02] LABS: V-Zoster IgG (Immunity) 561 index (Immune >165)
[2022-03-05 21:07] LABS: Chlamydia By Nucleic Acid AMP Negative (Negative)
[2022-03-06 15:45] LABS: Gonococcus By Nucleic Acid AMP Negative (Negative)
== END | disposition home or self-care (01) ==
PROVIDERS: Visit Provider Obstetrics & Gynecology
DX: Z11.3 Encounter for screening for infections with a predominantly sexual mode of transmission (principal); Z34.81 Encounter for supervision of other normal pregnancy, first trimester
CPT/HCPCS: 36415; 85025; 86703; 86762; 86780; 86787; 86803; 87086; 87088; 87340; 87491; 87591

== ENCOUNTER 2022-03-14 14:44 | Emergency (ER) | payer OTHER, SELFPAY ==
[2022-03-14 14:45] VITALS: BP 131/84; PULSE 83; RESP 18; TEMP 36.6; O2SAT 98; BMI 42.0
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
== END 2022-03-14 16:09 | disposition home or self-care (01) ==
PROVIDERS: Emergency Provider Emergency Medicine; PCP Student in an Organized Health Care Education/Training Program; Visit Provider Emergency Medicine
DX: O9A.211 Injury, poisoning and certain other consequences of external causes complicating pregnancy, first trimester (principal); S01.01XA Laceration without foreign body of scalp, initial encounter; W22.8XXA Striking against or struck by other objects, initial encounter; Z3A.09 9 weeks gestation of pregnancy
CPT/HCPCS: 12002; 99283

== ENCOUNTER → 2022-06-03 | Outpatient (CLI) | payer OTHER, SELFPAY ==
--- NOTE | 2022-06-03 14:15 | US_ITS ---
HISTORY: Supervision of . LMP 01/05/2022. TECHNIQUE: Transabdominal pelvic ultrasound was performed. 91 images. COMPARISON: None. FINDINGS: INTRAUTERINE GESTATION(s): Single. PRESENTATION: Left oblique/transverse with feet down and head to maternal left. HEART MOTION: 158 bpm. PLACENTA: Fundal anterior, grade 0. No placenta previa. CERVIX: 6.6 cm in length and closed. AMNIOTIC FLUID INDEX (FLOR): Largest fluid pocket 3.2 x 3.5 cm. biometry- BIPARIETAL DIAMETER: 5.1 cm, corresponding to 21 weeks 4 days. HEAD CIRCUMFERENCE: 18.6 cm, corresponding to 20 weeks 6 days. ABDOMINAL CIRCUMFERENCE: 16.5 cm, corresponding to 21 weeks 4 days. FEMUR LENGTH: 3.6 cm, corresponding to 21 weeks 4 days. ESTIMATED GESTATIONAL AGE: 21 weeks 2 days. ESTIMATED DUE DATE (ROSENDA): 10/12/2022. ESTIMATED WEIGHT: 435 g corresponding to 68th percentile. ANATOMY: Nuchal cord noted. Anterior and posterior cranial fossa, face with orbits, nose/lips, bilateral upper and lower extremities, four-chamber heart, three-vessel cord insertion, stomach, kidneys, and bladder visualized. Limited evaluation of facial profile and spine due to presentation. US/OB Anatomy Scan IMPRESSION: Single living intrauterine currently in oblique/transverse presentation with a nuchal cord. Estimated gestational age of 21 weeks 2 days. Electronically Signed: Maame Araiza MD at 12:56 EST ,
== END | disposition home or self-care (01) ==
LOC: US 14:13
PROVIDERS: PCP Internal Medicine; Referring Provider Student in an Organized Health Care Education/Training Program; Visit Provider Student in an Organized Health Care Education/Training Program
DX: Z34.92 Encounter for supervision of normal pregnancy, unspecified, second trimester (principal)
CPT/HCPCS: 76805

== ENCOUNTER → 2022-07-03 | Outpatient (CLI) | payer OTHER, SELFPAY ==
[2022-07-03 09:40] LABS: Absolute Lymphocyte Count 2.52 X10^3/uL (0.83-4.51); Absolute Neutrophil Count 8.4 X10^3/uL (2.0-7.7); Basophil# 0.07 X10^3/uL; Basophil% 0.6 % (0-1); Eosinophils% 0.8 % (0-5); Hemoglobin 11.2 g/dL (12.0-15.0); Lymphocyte # 2.52 X10^3/ul (0.83-4.51); Lymphocyte % 20.9 % (19-41); Mean Corp Hgb Conc 32.9 g/dL (32-36); Mean Corpuscular Hgb 28.4 pg (27.0-32.0); Mean Corpuscular Volume 86.1 fL (81-99); Mean Platelet Vol. 9.1 fl (6.2-12.0); Monocyte# 0.64 X10^3/uL; Monocyte% 5.3 % (0-10); NRBC Flagged by Analyzer 0 % (0-5); Neutrophil # 8.35 X10^3/uL (2.7-7.7); Neutrophil % 69.2 % (47-70); Platelet Count 322 K/mm3 (150-450); RBC Distribution Width CV 15.7 % (11.6-14.6); Red Blood Count 3.95 M/mm3 (4.2-5.4); White Blood Count 12.1 K/mm3 (4.4-11.0)
[2022-07-03 09:46] LABS: Glucose Challenge Gest 1H 50g 138 mg/dL (70-140)
[2022-07-03 10:08] LABS: Syphilis Antibodies Non-reactive
== END | disposition home or self-care (01) ==
PROVIDERS: PCP Internal Medicine; Visit Provider Nurse Practitioner Women's Health
DX: Z34.82 Encounter for supervision of other normal pregnancy, second trimester (principal)
CPT/HCPCS: 36415; 82950; 85025; 86780

== ENCOUNTER 2022-08-06 07:10 | Outpatient (CLI) | payer OTHER, SELFPAY ==
[2022-08-06 07:23] VITALS: BMI 43.5
[2022-08-06 07:35] VITALS: BP 93/52; PULSE 96
--- NOTE | 2022-08-06 08:45 | HP.PCM.OB_ITS ---
History and Physical Date of Admission: 08/06/22 HPI: 32-year-old G2, P1 at 30/4w, ROSENDA 10/11/22 by LMP, presenting status post fall. Patient fell down 5 stairs this morning on her left side. States that mostly her elbow and left leg hit the stairs. Denies any abdominal trauma. Denies leaking of fluid or vaginal bleeding. Denies contractions. Reports movement. complicated by: Class III obesity OB/gyne history: G1: Full-term section G2: Current Medical history: 1. Class III obesity Surgical history: 1. section Family history: No history of blood clots or bleeding disorders Allergies: 1. Adhesive tape 2. Azithromycin causes itchy throat Medications: 1. vitamin 2. Phenergan 3. B6 Social history: Denies tobacco, alcohol, drug use Review of system: Negative otherwise stated above Physical exam: Blood pressure 93/52, heart rate 96 General: No acute distress, comfortable in bed HEENT: Normal cephalic/atraumatic Cardiorespiratory: No increased effort abdomen: Soft, nontender, gravid. No ecchymosis Extremities: No edema, no ecchymosis on back or legs or arm Musculoskeletal: Moves all extremities Neurologic: No focal deficits heart rate:145/mod etienne/+accel/+variable x1 [place]iederwald: quiet Assessment/plan: 32-year-old G2, P1 at 30/4w, ROSENDA 10/11/22 by LMP, presenting status post fall. ?Continuous monitoring for 4 hours ?O+ blood type ?P.o. hydrate, okay to eat ?Tylenol for leg discomfort
== END 2022-08-06 11:45 | disposition home or self-care (01) ==
LOC: WPOUT 07:15 → WP 07:15
PROVIDERS: PCP Internal Medicine; Referring Provider Student in an Organized Health Care Education/Training Program; Visit Provider Student in an Organized Health Care Education/Training Program
DX: O9A.219 Injury, poisoning and certain other consequences of external causes complicating pregnancy, unspecified trimester (principal); S89.92XA Unspecified injury of left lower leg, initial encounter; W10.9XXA Fall (on) (from) unspecified stairs and steps, initial encounter; Z3A.00 Weeks of gestation of pregnancy not specified
CPT/HCPCS: 59025

== ENCOUNTER → 2022-09-19 | Outpatient (CLI) | payer OTHER, SELFPAY ==
[2022-09-19 12:25] LABS: Absolute Lymphocyte Count 2.96 X10^3/uL (0.83-4.51); Absolute Neutrophil Count 9.8 X10^3/uL (2.0-7.7); Basophil# 0.11 X10^3/uL; Basophil% 0.8 % (0-1); Eosinophil# 0.11 X10^3/uL; Eosinophils% 0.8 % (0-5); Hematocrit 36.7 % (37-47); Lymphocyte # 2.96 X10^3/ul (0.83-4.51); Lymphocyte % 20.4 % (19-41); Mean Corp Hgb Conc 32.7 g/dL (32-36); Mean Corpuscular Hgb 27.5 pg (27.0-32.0); Mean Corpuscular Volume 84.2 fL (81-99); Mean Platelet Vol. 9.8 fl (6.2-12.0); Monocyte# 0.84 X10^3/uL; Monocyte% 5.8 % (0-10); NRBC Flagged by Analyzer 0 % (0-5); Neutrophil # 9.83 X10^3/uL (2.7-7.7); Neutrophil % 67.6 % (47-70); Platelet Count 322 K/mm3 (150-450); RBC Distribution Width CV 15.9 % (11.6-14.6); RBC Distribution Width SD 48.2 fl (35.1-43.9); Red Blood Count 4.36 M/mm3 (4.2-5.4); White Blood Count 14.5 K/mm3 (4.4-11.0)
== END | disposition home or self-care (01) ==
LOC: WOBLAB 12:13
PROVIDERS: PCP Internal Medicine; Visit Provider Nurse Practitioner Women's Health
DX: Z34.83 Encounter for supervision of other normal pregnancy, third trimester (principal)
CPT/HCPCS: 36415; 85025

== ENCOUNTER 2022-10-08 05:00 | Inpatient (IN) | payer OTHER, SELFPAY ==
[2022-10-08] VITALS (16 sets, daily range): BP systolic 92–110; BP diastolic 39–60; PULSE 63–87; RESP 14–20; TEMP 36.1–36.8; O2SAT 96–97; BMI 46.1
--- NOTE | 2022-10-08 05:07 | PCM.HP.BLA ---
History and Physical Date of Admission: 10/08/22 HPI: 32-year-old G2, P1 at 39/4, ROSENDA 10/11/2022 by LMP, admitted for repeat section. Denies leaking fluid, vaginal bleeding. Reports some contractions. Denies headache or vision changes, chest pain or shortness of breath, nausea or vomiting, diarrhea constipation, fevers or chills. complicated by: Class III obesity CONFECTIONERY COOKER history: G1: section at 40 weeks G2: Current Medical history: 1. Class III obesity Surgical history: 1. section Allergies: Adhesive tape and azithromycin Social history: Denies tobacco, alcohol, drug use Family history: Denies history of blood clots or bleeding disorders, not contributory otherwise Medications: 1. vitamin Review of system: Negative otherwise stated above Physical exam: Vitals: Pending General: Patient comfortable, no acute distress HEENT: Normocephalic/atraumatic, PERRLA Cardiorespiratory: No increased effort Abdomen: Soft, nontender, gravid Extremities: Minimal edema Neurologic: Cranial nerves II through XII grossly intact, no focal deficits Musculoskeletal: Moves all extremities equally NST pending Assessment/plan: 32-year-old G2, P1 at 39/4, ROSENDA 10/11/2022 by LMP, admitted for repeat section. complicated by: Class III obesity. ?Admit for repeat section ? Class III obesity ?2 g Ancef preoperatively ? All risk, benefits, alternatives discussed with the patient. Risk include but not limited to: Risk of bleeding twin transfusion, infection, injury to surrounding tissue including bowel/bladder potentially requiring prolonged Haider catheter use, VTE, IC admission. Patient aware and consented.
--- NOTE | 2022-10-08 05:20 | OP.PCM_ITS ---
Maternal Data Information Final ROSENDA: 10/11/22 Details Operative Information Date of Procedure: 10/08/22 Pre-Operative Diagnosis: Dodson intrauterine at term, repeat section Post-Operative Diagnosis: Dodson intrauterine at term, repeat section Indications for : Repeat Elective Indications Narrative: This is a 32-year-old G2, P1 at 39/4 weeks, ROSENDA 10/11/2022 by LMP, admitted for repeat section. section was completed in urgent fashion, and due to to tachycardia. All risk, benefits, alternatives discussed with the patient. Risk include but not limited to: Risk of bleeding twin transfusion, infection, injury to surrounding tissue including bowel/bladder potentially requiring prolonged Haider catheter use, VTE, IC admission. Patient aware and consented. Procedure Type: low transverse Estimated Blood Loss: 700cc Fluids Replaced: 1000 cc Findings Description of Procedure: Procedure: Patient taken to the operating room and spinal anesthesia placed. Patient placed in the supine position with a left lateral tilt. Prepped and draped in usual sterile fashion. Pfannenstiel skin incision made with scalpel and carried down through subcutaneous tissue. Fascia nicked on either side of the midline and extended bilaterally using Rios scissors. Rectus muscles noted to be widely, right rectus muscle very lateral. Peritoneum identified and entered bluntly. Bladder blade placed. Low transverse uterine incision made with scalpel and extended bluntly. Meconium fluid. Hand placed into the uterine cavity and head elevated to the level of the hysterotomy. With the assistance of gentle fundal pressure head delivered followed by body. No nuchal cord. Cord clamped and cut. Baby to nursing. Manual extraction of the placenta. Uterus exteriorized and cleared of all clots. Hysterotomy closed with a running stitch followed by second vertical imbricating stitch. Hemo static with 1 [id number] suture at the left corner of the hysterotomy closure. Uterus replaced into the abdominal cavity. Hemostasis confirmed. Peritoneum closed in a running fashion. Fascia closed in a running fashion. Subcutaneous tissue reapproximated with suture. Skin closed with a running subcuticular stitch. At the end of the procedure all needle, lap, sponge counts were correct. UOP: 400cc clear urine Baby resuscitated by respiratory, manager bridge, nursing staff. See their documentation for further details. APGARS pending. A Gender: Female Complications Complications: None
[2022-10-08] MEDS: Lactated Ringers 1,000 ML 999 ML IV (05:40)
[2022-10-08 05:50] LABS: Absolute Lymphocyte Count 2.27 X10^3/uL (0.83-4.51); Absolute Neutrophil Count 9.7 X10^3/uL (2.0-7.7); Basophil# 0.07 X10^3/uL; Basophil% 0.5 % (0-1); Eosinophil# 0.11 X10^3/uL; Eosinophils% 0.8 % (0-5); Hematocrit 34.5 % (37-47); Hemoglobin 11.6 g/dL (12.0-15.0); Lymphocyte # 2.27 X10^3/ul (0.83-4.51); Lymphocyte % 17.4 % (19-41); Mean Corp Hgb Conc 33.6 g/dL (32-36); Mean Corpuscular Hgb 27.6 pg (27.0-32.0); Mean Corpuscular Volume 82.1 fL (81-99); Monocyte# 0.53 X10^3/uL; Monocyte% 4.1 % (0-10); NRBC Flagged by Analyzer 0 % (0-5); Neutrophil % 74.7 % (47-70); Platelet Count 283 K/mm3 (150-450); RBC Distribution Width CV 15.9 % (11.6-14.6)
[2022-10-08] MEDS: Sodium Citrate/Citric Acid 30 ML UDC PO (06:23)
[2022-10-08] MEDS: Acetaminophen 500 MG Tablet 1000 MG PO ×3 (06:23→18:09)
[2022-10-08] MEDS: Cefazolin 2 GM in 0.9% Normal Saline 100 ML IV (07:00)
[2022-10-08] MEDS: Oxytocin 15 Units/NS 250ml 15 UNITS/250 ML IV.SOLN 83 UNITS IV (08:00)
[2022-10-08] MEDS: Ketorolac 30 MG/ML Syringe IV ×3 (08:33→20:55)
[2022-10-08 08:41] LABS: Syphilis Antibodies Non-reactive
[2022-10-08] MEDS: HYDROmorphone 1 MG/ML Syringe IV (09:34)
[2022-10-08] MEDS: Lactated Ringers 1,000 ML 100 ML IV (11:16)
--- NOTE | 2022-10-08 11:48 | CASEMGMT ---
Social Work Labor and Delivery Unit ? Summary:?This social work supervisor (sw) presented to bedside, introduced self to mother of baby (MOB) and father of baby (FOB). Sw explained sw role during admission. MOB became tearful and stated that she is really struggling due to needing to be transferred to [facility] [place] N[facility]. Sw provided empathy and support. Sw answered all questions MOB had regarding NICU and what to expect during baby's admission there (bed type, sleeping arrangements, etc.) Sw informed MOB that they do have the option of requesting a room through [facility] that may be more helpful following her . MOB informed sw that she does have a history of PPD. Sw completed PHQ-2, no concerns. MOB stated that she is already planning appropriate coping skills to utilize once she is home with baby and her other child (Yocasta, 2 years old). Sw encouraged MOB to reach out to natural supports that she already has in place, , mother, and sister. MOB stated that this is difficult for her because her baby is not with her and she is sad because she did not get to experience all of the firsts. Sw expressed understanding and encouraged MOB to discuss this desire with nursing staff at [facility] NICU, and tell them that going forward she would like to be very active in baby care including diaper changes, baths, etc. MOB expressed understanding. ? Assessment:??MOB would benefit from additional support provided by sw and Labor and Delivery/ Post staff. MOB was engaged in conversation, FOB offered support to MOB and was making plans to leave and meet with baby at [facility] NICU. ? Intervention:?Provided support, active listening and discussed appropriate coping skills for PPD. ? Plan:??Sw to provide MOB with list of [facility] mental health resources. ? Jose J Anderson, PHYSICIAN COMPENSATION ANALYST, PAPER TESTING SUPERVISOR
[2022-10-08] MEDS: Senna/Docusate Sodium 1 Tablet PO (12:30)
[2022-10-08] MEDS: Enoxaparin 40 MG/0.4 ML Syringe SC (20:56)
[2022-10-09 00:11] VITALS: BP 105/54; PULSE 66; RESP 18
[2022-10-09] MEDS: Acetaminophen 500 MG Tablet 1000 MG PO ×2 (00:13→06:11)
[2022-10-09 03:36] VITALS: BP 93/64; PULSE 82; RESP 18
[2022-10-09] MEDS: Ibuprofen 600 MG Tablet PO ×2 (03:37→09:18)
[2022-10-09 06:26] LABS: Hematocrit 32.9 % (37-47); Hemoglobin 10.8 g/dL (12.0-15.0); Mean Corp Hgb Conc 32.8 g/dL (32-36); Mean Corpuscular Hgb 27.8 pg (27.0-32.0); Mean Corpuscular Volume 84.8 fL (81-99); Mean Platelet Vol. 9.7 fl (6.2-12.0); Platelet Count 233 K/mm3 (150-450); RBC Distribution Width CV 16.1 % (11.6-14.6); RBC Distribution Width SD 49.7 fl (35.1-43.9); Red Blood Count 3.88 M/mm3 (4.2-5.4); White Blood Count 12.5 K/mm3 (4.4-11.0)
--- NOTE | 2022-10-09 07:18 | PCM.PN.OB ---
Subjective Subjective Patient doing well. Pain controlled. Having some cramping. Lochia minimal. Reports that baby is doing well at [facility], off of CPAP. Objective Data Objective Data Vital Signs: Vital Signs Temp Pulse Resp BP Pulse Ox O2 Del Method 97 F L 82 18 93/64 97 Room Air 10/08/22 20:52 10/09/22 03:36 10/09/22 03:36 10/09/22 03:36 10/08/22 16:10 10/09/22 03:36 Oxygen Delivery Method Room Air Weight: 114.419 kg Body Mass Index (BMI) 46.1 Intake & Output: Intake and Output for Last 24 Hours 10/07/22 10/08/22 10/09/22 23:59 23:59 23:59 Intake Total 2800 / 2800 Output Total 2675 / 2675 900 / 900 Balance 125 / 125 -900 / -900 Lab / Micro Data Attestation: I reviewed the patient's lab results. Result Diagrams: 10/09/22 06:15 Labs: Laboratory Results - last 24 hr 10/08/22 05:30: Syphilis Total Ab Non-reactive 10/09/22 06:15: WBC 12.5 H, RBC 3.88 L, Hgb 10.8 L, Hct 32.9 L, MCV 84.8, MCH 27.8, MCHC 32.8, RDW Std Deviation 49.7 H, RDW Coeff of Shamar 16.1 H, Plt Count 233, MPV 9.7 Physical Exam Const alert, oriented x3 and no apparent distress HEENT normocephalic Head and Scalp: atraumatic Neck full ROM Resp normal respiratory effort Cardio regular rate GI normal to inspection, nondistended, normoactive bowel sounds GI Narrative: Uterus 2 cm below umbilicus, dressing clean and dry Back/Spine normal ROM Extremity normal to inspection Extremity Narrative: Minimal pedal edema Neuro no focal motor deficits and no sensory deficits noted Psych mental status grossly normal and affect normal Assessment & Plan (1) Other acute postprocedural pain: PLAN: Postop day 1 status post repeat section. Patient is doing well, in stable condition. Discharge home today.
--- NOTE | 2022-10-09 07:19 | DCINST_ITS ---
Discharge Instructions Diet Discharge Diet: No restrictions Activity Discharge Activity: Return to Normal Activity and May Shower May resume sexual activity in: 4-6 weeks Weight Bearing Status: Weight bearing as tolerated Lifting Restrictions: No greater than 25 pounds Dressing / Incision Call your doctor if your incision/area has: Continuous Slow Oozing, Increased Redness and Swelling at the incision site Call your doctor if you observe: Fever of 101 or Higher, Change in Color, Inability to urinate, Using more than 1 pad per hour, Shortness of breath, Dizziness, Swelling in the ankles, Chest pain and Calf discomfort Remove Dressing in: 1 week Cleanse incision/area with: Soap & Water and Keep Dressing Clean & Dry Follow Up Care Please Follow Up With: Gisselle Angel DO When: 2-week and 6-week visit Test Results: Test results from this visit will be discussed in further detail at your follow- up appointment, if applicable. Discharge Plan Admission Admit Date/Time: 10/08/22 05:00 Primary Reason for Your Visit: section Attending Provider: Gisselle Angel Primary Care Provider: Evelyn Disla Discharge Orders/Prescriptions Prescriptions: New oxycodone 5 mg Tablet 5 mg PO Q4H PRN PRN (Reason: Pain Score 6-10) 4 Days Qty: 14 0RF Continued vit,[id number] 1 TABLET tablet 1 tab PO DAILY Discontinued promethazine 12.5 mg tablet 12.5 mg PO Q6H PRN (Reason: Nausea) Label Comments: TAKE 1 TABLET BY MOUTH EVERY 4 TO 6 HOURS NEEDED FOR NAUSEA pyridoxine (vitamin B6) [Vitamin B-6] 25 mg tablet 25 mg PO QHS Label Comments: TAKE 1 TABLET BY MOUTH EVERY DAY Referrals / Follow Up: Evelyn Disla MD [Primary Care Provider] - Disposition Disposition (needs filled in before D/C Order can be placed): Home, Self Care
[2022-10-09 08:16] VITALS: BP 82/60; BP 96/54; PULSE 75; RESP 16; TEMP 36.9; O2SAT 97
--- NOTE | 2022-10-09 09:12 | CASEMGMT ---
Grisel Date: 10/08/22 Time: 1100 Summary: Sw met with mother of baby (MOB), Monique to provide support, and completed brief social work assessment. Sw provided hand off to KEVIN Lopez at [facility]. Sw informed Ms. Medina that MOB would benefit from ongoing support and possible linkage to psychology support to monitor for signs/ symptoms of baby blues and post depression. Sw provided brief medical update on reason as to why baby is being transferred to [facility]. Assessment: Sign out provided to [facility] for continuity of care. Plan: No futher sw needs or concerns identified at this time. Sw available to provide support until MOB is medically ready for discharge. SEUN Dillard, SCREEN PRINTING PRESS OPERATOR
[2022-10-09] MEDS: oxyCODONE 5 MG Tablet PO (09:18)
== END 2022-10-09 09:50 | disposition home or self-care (01) | DRG 788 ==
PROVIDERS: Admitting Provider Student in an Organized Health Care Education/Training Program; PCP Internal Medicine; Referring Provider Student in an Organized Health Care Education/Training Program; Visit Provider Student in an Organized Health Care Education/Training Program
PROC: 10D00Z1 Extraction of Products of Conception, Low, Open Approach (ICD-10-PCS; CPT 59514; principal; 2022-10-08 06:55)
DX: O76 Abnormality in fetal heart rate and rhythm complicating labor and delivery (principal); O99.214 Obesity complicating childbirth; O34.219 Maternal care for unspecified type scar from previous cesarean delivery; Z37.0 Single live birth; Z3A.39 39 weeks gestation of pregnancy
CPT/HCPCS: 59050; 85025; 85027; 86780; 86850; 86900; 86901; 99221; J7120; G0378; J2405

== ENCOUNTER 2022-12-16 05:30 | Emergency (ER) | payer OTHER, SELFPAY ==
[2022-12-16 05:32] VITALS: BP 104/61; PULSE 74; RESP 18; TEMP 36.6; O2SAT 97; BMI 45.9
--- NOTE | 2022-12-16 05:42 | RAD_ITS ---
EXAM: XR CHEST, 1 VIEW CLINICAL INDICATION: chest pain TECHNIQUE: Frontal view of the chest. COMPARISON: June 08, 2018. FINDINGS: LUNGS AND PLEURAL SPACES: Unremarkable. No consolidation or edema. No pneumothorax. No effusion. HEART: Unremarkable. Cardiac silhouette not enlarged. MEDIASTINUM: Central airways and mediastinal contour are unremarkable. BONES/JOINTS: Unremarkable. SOFT TISSUES: Unremarkable. RAD/Chest 1 View (Portable) IMPRESSION: No radiographic evidence of acute cardiopulmonary disease. Electronically Signed: Fela Nevarez MD at 6:31 EDT ,
[2022-12-16 05:53] LABS: Absolute Lymphocyte Count 2.81 X10^3/uL (0.83-4.51); Absolute Neutrophil Count 4.9 X10^3/uL (2.0-7.7); Basophil# 0.05 X10^3/uL; Basophil% 0.6 % (0-1); Eosinophil# 0.22 X10^3/uL; Eosinophils% 2.6 % (0-5); Hematocrit 36.4 % (37-47); Hemoglobin 12.1 g/dL (12.0-15.0); Lymphocyte # 2.81 X10^3/ul (0.83-4.51); Lymphocyte % 32.6 % (19-41); Mean Corp Hgb Conc 33.2 g/dL (32-36); Mean Corpuscular Hgb 27.1 pg (27.0-32.0); Mean Corpuscular Volume 81.6 fL (81-99); Mean Platelet Vol. 9.2 fl (6.2-12.0); Monocyte# 0.55 X10^3/uL; Monocyte% 6.4 % (0-10); NRBC Flagged by Analyzer 0 % (0-5); Neutrophil # 4.92 X10^3/uL (2.7-7.7); Neutrophil % 57.1 % (47-70); Platelet Count 298 K/mm3 (150-450); RBC Distribution Width CV 13.8 % (11.6-14.6); RBC Distribution Width SD 40.4 fl (35.1-43.9); Red Blood Count 4.46 M/mm3 (4.2-5.4); White Blood Count 8.6 K/mm3 (4.4-11.0)
[2022-12-16] MEDS: Ondansetron 4 MG/2 ML Vial IV (05:56)
--- NOTE | 2022-12-16 05:56 | EDS_ITS ---
HPI History of Present Illness Chief Complaint: Chest Pain Informant: patient Onset/Context/Timing Onset: Today Quality: Positive for Pain and Tightness Location: - (Band around lower chest) Current Severity: Moderate Maximum Severity: Moderate Associated Symptoms: Positive for Nausea and Vomiting Narrative Narrative: Patient presents secondary to chest pain. She states she woke shortly before 4 AM with bandlike pain around her lower chest. She states she felt well when she went to bed last night. She waited nearly 2 hours to come to the emergency room thinking it would go away but she did not receive any relief. She did have nausea and vomiting at home. Patient denies any personal or family history of cardiac disease. She had a baby 2 months ago. She has been on escitalopram since that time, but is on no other medication. [facility] Medical History delivery delivered Home Medications escitalopram oxalate 10 mg tablet mg PO DAILY 12/16/22 [History Last Taken Unknown] Allergy/AdvReac Type Severity Reaction Status Date / Time adhesive tape Allergy Rash Verified 12/16/22 05:31 azithromycin AdvReac itching Verified 12/16/22 05:31 [From Zithromax Z-Anuel] throat Social History Smoking Status: Never smoker ROS ROS ED Constitutional Constitutional ED: Denies chills or fever(s) Eyes Eyes: Denies discharge from eye(s) ENT ENT ED: Denies discharge from eye(s), rhinorrhea or sore throat Cardiovascular Cardiovascular: Reports chest pain; Denies palpitations Respiratory/Chest Respiratory/Chest: Denies cough or dyspnea Gastrointestinal Gastrointestinal: Reports abdominal pain, nausea and vomiting; Denies diarrhea Genitourinary Genitourinary ED: Denies dysuria Musculoskeletal Musculoskeletal: Denies back pain or extremity pain Integumentary Denies Abrasions or rash Neurologic Neurologic: Denies headache(s) or weakness Psychiatric Psychiatric: Denies anxiety or depression Allergic/Immunologic Allergic/Immunologic ED: Denies lip swelling or urticaria EXAM Physical Exam Const Vital Signs: 12/16/22 05:32 12/16/22 06:03 12/16/22 06:32 Temperature 97.8 F Temperature Source Oral Pulse Rate 74 69 Respiratory Rate 18 15 Blood Pressure 104/61 Blood Pressure Mean 75 Pulse Ox 97 97 Oxygen Delivery Method Room Air Room Air Room Air Positive well nourished and well developed General Appearance ED: well developed HEENT Reports normocephalic and head/scalp atraumatic Eyes PERRL and EOMs intact bilaterally Neck supple Chest Wall inspection of chest normal and palpation of chest normal Resp normal respiratory effort and clear to auscultation bilaterally Cardio regular rate and regular rhythm GI GI Narrative: Upper abdominal tenderness to palpation. No guarding or rebound. Palpation: soft Extremity normal to inspection Neuro oriented x3 and no sensory deficits noted Sensorium / Orientation: alert Motor Exam: strength 5/5 throughout Psych mental status grossly normal Skin no rashes or lesions noted Heart Score History: Slightly/Non-Suspicious ECG: Normal Age: </= 45 years Risk Factors: No Risk Factors Troponin: </= Normal Limit Score: 0 MDM MDM MDM Narrative Medical decision making narrative: Patient placed on property assessment monitor and given aspirin. Patient is also given morphine and Zofran for pain and nausea control. Labwork obtained to evaluate for leukocytosis, anemia, and electrolyte derangement. Chest x-ray obtained to evaluate for acute lung pathology, cardiac size, or mediastinal abnormality. E KG obtained to evaluate for cardiac arrhythmia/ischemia. Lab Data Labs: Laboratory Results - last 24 hr 12/16/22 05:47 WBC 8.6 RBC 4.46 Hgb 12.1 Hct 36.4 L MCV 81.6 MCH 27.1 MCHC 33.2 RDW Std Deviation 40.4 RDW Coeff of Shamar 13.8 Plt Count 298 MPV 9.2 Immature Gran % (Auto) 0.700 Neut % (Auto) 57.1 Lymph % (Auto) 32.6 [place] % (Auto) 6.4 Eos % (Auto) 2.6 Baso % (Auto) 0.6 Absolute Neuts (auto) 4.9 Absolute Lymphs (auto) 2.81 Nucleated RBC % 0 Sodium 135 L Potassium 4.0 Chloride 108 H Carbon Dioxide 23.0 Anion Gap 4 L BUN 16 Creatinine 0.82 Estim Creat Clear Calc 77.90 Est GFR (MDRD) Af Amer 104 Est GFR (MDRD) Non-Af 86 BUN/Creatinine Ratio 19.6 Glucose 132 H Calcium 8.3 L Total Bilirubin 0.40 Direct Bilirubin 0.06 AST 61 H ALT 53 Alkaline Phosphatase 97 Troponin I High Sens < 3 L Total Protein 6.7 Albumin 3.0 L Globulin 3.7 Lipase 66 Serum , Qual NEGATIVE Radiography Diagnostic Testing: Clinical Impression(s) from Imaging Studies Chest X-Ray 12/16/22 05:42 IMPRESSION: No radiographic evidence of acute cardiopulmonary disease. Electronically Signed: Fela Nevarez MD at 6:31 EDT Reading Location ID and State: [facility] / [place] Tel , Service support , Treatment and Re-Evaluation :: On repeat evaluation patient's pain is improved. CBC was normal white count 8.6 with no left shift. Hemoglobin normal at 12.1. Chemistry studies reveal a sodium of 135 and a chloride of 108. Renal function is normal. Leukosis 132. LFTs significant for an AST bumped at 61. Troponin is less than 3. Lipase is normal at 66. test negative. Portable chest x-ray per my interpretation reveals no acute abnormalities. Radiology interpretation is reviewed and agrees. EKG is sinus at 74 with no acute ischemia. Patient will be sent for right upper quadrant ultrasound to evaluate for gallbladder disease. This to be signed out to oncoming physician. Test results up to this point have been discussed with patient and family. Discharge Plan Triage Chief Complaint: Chest Pain ED Provider: Bev Fuller Dx/Rx/DC Orders Clinical Impression: Atypical chest pain, Abdominal pain Prescriptions: No Action escitalopram oxalate 10 mg tablet PO DAILY Patient Comments: 1 TABLET DAILY Primary Care Provider: Evelyn Disla Referrals: Evelyn Disla MD [Primary Care Provider] -
[2022-12-16] MEDS: Aspirin 81 MG TAB.CHEW 324 MG PO (05:57)
[2022-12-16] MEDS: Morphine 4 MG/ML Syringe IV (05:58)
[2022-12-16] MEDS: 0.9% Normal Saline 1,000 ML 150 ML IV (06:02)
[2022-12-16 06:03] LABS: Internal QC Validated? YES +Cl - CLEAR BKGD; Pregnancy, Serum, hCG Quali. NEGATIVE Negative
[2022-12-16 06:13] LABS: AST(SGOT) 61 U/L (15-37); Alanine Aminotransfer ALT/SGPT 53 U/L (13-56); Alkaline Phosphatase 97 U/L (45-117); Anion Gap 4 (5-15); BUN 16 mg/dL (7-18); BUN/Creat Ratio 19.6 RATIO (10-20); Bilirubin, Direct 0.06 mg/dL (0.00-0.30); Calcium,Total 8.3 mg/dL (8.5-10.1); Chloride 108 mmol/L (98-107); Creatinine, Serum 0.82 mg/dL (0.55-1.02); EST Glomerular Filtration Rate 86 mL/min (>60); Est Glom Filt Rate - Afr Amer 104 mL/min (>60); Globulin 3.7 g/dL (2.2-4.2); Glucose 132 mg/dL (74-106); Lipase 66 U/L (13-75); Protein, Total 6.7 g/dL (6.4-8.2); Sodium Level 135 mmol/L (136-145); Troponin-I HS (w/2H Reflex) < 3 pg/mL (3.0-54.0)
[2022-12-16 06:32] VITALS: PULSE 69; RESP 15; O2SAT 97
--- NOTE | 2022-12-16 06:34 | US_ITS ---
HISTORY: RUQ pain, N/V. TECHNIQUE: Pabon scale and color doppler imaging was performed of the right upper quadrant. 104 images. COMPARISON: None. FINDINGS: LIVER: 17.8 cm in length. Increased echogenicity with a heterogeneous lesion measuring 2.1 x 2.9 x 3.6 cm in the right lobe. No intrahepatic ductal dilatation. MAIN PORTAL VEIN: Patent with hepatopedal flow. COMMON BILE DUCT: 6 mm in diameter. GALLBLADDER: Multiple shadowing gallstones in a distended gallbladder. 2 mm wall thickness, within normal limits. No pericholecystic fluid. Sonographic Gauthier sign negative. PANCREAS: Visualized proximal portion unremarkable. RIGHT KIDNEY: 12.4 cm in length with a cortical thickness of 1.1 cm. No hydronephrosis or gross renal mass demonstrated. US/Gallbladder IMPRESSION: Hepatic steatosis with mild hepatomegaly and a 3.6 cm mass in the right lobe. Recommend correlation with multiphasic MRI or CT to evaluate for neoplasm versus benign lesion. Cholelithiasis. Electronically Signed: Maame Araiza MD at 8:31 EDT ,
[2022-12-16 07:50] LABS: Reflex Troponin-HS? (from REC) Y
[2022-12-16 08:37] LABS: Troponin-I HS 4 pg/mL (3.0-54.0)
--- NOTE | 2022-12-16 08:37 | CT_ITS ---
HISTORY: liver mass. TECHNIQUE: Helically acquired images were obtained of the abdomen and pelvis before and after the intravenous administration of 100mL Isovue-370 with triple phase liver protocol. A radiation dose optimization technique was used for this scan. 570 images. COMPARISON: US same day. FINDINGS: LOWER CHEST: Lung bases clear. BOWEL: Bowel including appendix nondilated. No focal pericolonic inflammatory change observed. PERITONEUM: No significant ascites. LIVER: 2.2 x 2.8 cm solidly enhancing mass in segment 6, isodense on precontrast images and mildly enhancing on venous phase. Fatty infiltration and enlarged. GALLBLADDER/BILIARY TREE: Small gallstones identified. SPLEEN/PANCREAS/ADRENAL GLANDS: Homogeneous and nonenlarged. KIDNEYS: No nephrolithiasis, hydronephrosis, or enhancing mass. VESSELS: No abdominal aortic aneurysm or dissection. PELVIC ORGANS: Unremarkable. BONES: Intact. CT/CT Abd/Pelvis W/WO Contrast IMPRESSION: 2.8 cm solidly enhancing mass in the right posterior hepatic lobe. Recommend hepatic MRI to assess for atypical hemangioma, small focal nodular hyperplasia, or other neoplasm. Cholelithiasis. Electronically Signed: Maame Araiza MD at 9:54 EDT ,
[2022-12-16 10:02] VITALS: BP 129/78; PULSE 64; RESP 14; TEMP 37.1; O2SAT 99
== END 2022-12-16 10:23 | disposition home or self-care (01) ==
PROVIDERS: Emergency Medicine; Emergency Provider Emergency Medicine; PCP Internal Medicine; Visit Provider Emergency Medicine
DX: R07.89 Other chest pain (principal); R10.9 Unspecified abdominal pain
CPT/HCPCS: 71045; 74178; 76705; 80048; 80076; 83690; 84484; 84703; 85025; 93005; 96361; 96374; 96375; 99283; J7030; Q9967; A4216; J2405

== ENCOUNTER → 2022-12-29 | Outpatient (CLI) | payer OTHER, SELFPAY ==
--- NOTE | 2022-12-29 07:15 | MRI_ITS ---
STUDY: MRI ABDOMEN WITH AND WITHOUT CONTRAST REASON FOR EXAM: Female, 32 years old. liver mass seen on CT 12/16/22. TECHNIQUE: Standardized fat and water weighted pulse sequences were obtained in all 3 orthogonal planes post contrast administration. IV 21ml clariscan was administered for the contrast portion of the examination. COMPARISON: Ultrasound 12/16/2022, CT 12/16/2022. FINDINGS: Base of the chest is unremarkable. In segment 6 of the right hepatic lobe, subtle (on noncontrasted portion of the exam) isointense to slightly hypointense lesion (2.6 x 2.7 cm) correlates to abnormality on recent ultrasound and CT. Following IV contrast, there is slightly lobular arterial enhancement with mild, incomplete washout on venous and delayed phase imaging. There is central retained enhancement on delayed images suggesting presence of a central scar. No signal dropout of the lesion on out of phase imaging to suggest presence of fat. No calcifications are seen (including on prior CT). Contours of the liver are smooth. No additional lesion is seen. Normal gallbladder and extrahepatic biliary system. Normal spleen. Normal pancreas. Normal bilateral adrenal glands. Normal right kidney. Normal left kidney. Visualized hollow viscus structures are unremarkable. Normal abdominal aorta. Normal inferior vena cava. Normal retroperitoneum. Normal abdominal wall. No bone marrow edema. MRI/MRI Abd WITH and W/O Contrast IMPRESSION: 1. 2.6 x 2.7 cm right hepatic lobe focal nodule hyperplasia, correlating to mass evident on prior CT and MRI. Electronically Signed: Terell Easton MD (Brooks) at 9:23 EDT Reading Location ID and State: [place] , Service support ,
== END | disposition home or self-care (01) ==
LOC: MRI 07:14
PROVIDERS: PCP Internal Medicine; Referring Provider Surgery; Visit Provider Surgery
DX: R16.0 Hepatomegaly, not elsewhere classified (principal)
CPT/HCPCS: 74183; A9575; A4216

== ENCOUNTER 2022-12-31 08:21 | Day surgery (SDC) | payer OTHER, SELFPAY ==
[2022-12-31] VITALS (8 sets, daily range): BP systolic 98–111; BP diastolic 57–67; PULSE 55–68; RESP 16; TEMP 36.6–36.8; O2SAT 92–99; BMI 44.7
--- NOTE | 2022-12-31 08:32 | EKG12_ITS ---
Test Reason : CP Blood Pressure : / mmHG Vent. Rate : 074 BPM Atrial Rate : 074 BPM P-R Int : 160 ms QRS Dur : 084 ms QT Int : 384 ms P-R-T Axes : 049 023 020 degrees QTc Int : 426 ms Normal sinus rhythm Normal ECG Confirmed by CAITLIN LAMAS [id number]), design editor LEA GEORGE ([id number]) on 01/01/2023 10:46:00 AM Referred By: Vignesh Euceda Confirmed By:CAITLIN LAMAS
--- NOTE | 2022-12-31 08:55 | RAD_ITS ---
STUDY: INTRAOPERATIVE CHOLANGIOGRAM. REASON FOR EXAM: Female, 32 years old. Laparoscopic cholecystectomy. FLUOROSCOPY TIME (if supplied): ( 38.5 seconds ) minutes/seconds. 30.54 mGy TECHNIQUE: Attempted intraoperative cholangiogram. COMPARISON: None. FINDINGS: Nondiagnostic study. RAD/Cholangiogram/ O R,Initial IMPRESSION: Nondiagnostic study. Electronically Signed: Horacio Glasgow MD at 13:40 EDT ,
[2022-12-31] MEDS: Lactated Ringers 1,000 ML 15 ML IV ×2 (08:58→11:01)
[2022-12-31 09:04] LABS: Internal QC Validated? YES +Cl - CLEAR BKGD; Pregnancy, Urine Negative Negative; Record Kit Lot#,Urine Preg HCG0000667200
--- NOTE | 2022-12-31 09:40 | HP.PCM_ITS ---
History and Physical Date of Admission: 12/31/22 Intake Vital Signs 12/16/2304:32 12/18/2312:31 Height 5 ft 2 in 5 ft 2 in Weight: 248 lb BMI 45.3 BP 121/74 H Blood Pressure Location Rt brachial Position Sitting Respiration 17 Pulse 61 Pulse Source Monitor Pulse Oximetry (%) 99 Oxygen Delivery Method room air Intake Visit Reasons: ED FOR GALLBLADDER DISEASE Chief Complaint: ED for gallbladder Is patient in pain?: No Allergies adhesive tape Allergy (Verified 12/18/22 13:32) Rashazithromycin [From Zithromax Z-Anuel] Adverse Reaction (Verified 12/18/22 13:32) itching throat Medications escitalopram oxalate 10 mg tablet mg PO DAILY 12/16/22 [History Confirmed 12/18/22] PFS Medical History delivery delivered Social History (Updated 12/18/22 @ 13:31 by She Jerez) Smoking Status: Never smoker alcohol intake: never substance use type: does not use HPI HPI HPI: Patient is a 32-year-old female with right upper quadrant pain. She had an attack of this right upper quadrant pain about 2 days ago. She was in the emergency room. This the first time this is happened to her. It was accompanied by nausea and vomiting but no fevers or chills. Patient reports she has been fine over the last 2 days. She says the pain stopped after they gave her medication in the emergency room. ROS General General: Yes fatigue; No weight change, appetite, colon cancer, breast cancer or weakness HEENT HEENT: No difficulty swallowing, eye injury, eye surgery, swollen glands or hoarseness Endo Endocrine: No thyroid disease, diabetes mellitus, thyroid cancer, Hair loss, heat intolerance or cold intolerance Skin Skin: No rash or changing moles Musc Musculoskeletal: No back problems, arthritis, rheumatoid arthritis, gout or joint pain Cardio Cardiovascular: No murmur, pacemaker, heart disease, atrial fibrillation, high blood pressure, heart attack, heart stent, palpitations, shortness of breat with exertion or chest pain Psych Psychiatric: Yes depression and anxiety; No hearing voices Resp Respiratory: No shortness of breath, No sleep apnea, No cough, No COPD, No asthma, No emphysema and No wheezing Gastro Gastrointestinal: No abdominal pain, Yes nausea or vomiting, No diarrhea, No constipation, No blood in stool, No acid reflux, No hemorrhoids, No ulcers, Yes gallbladder problem and No black,tarry stools Rebel Hematologic: No blood thinners, No blood disorders, No bleeding, No anemia and No blood clots Neuro Neurologic: No system reviewed and no additional complaints, except as documented, No as per HPI, No abnormal gait, No abnormal hearing, No abnormal movements, No abnormal speech, No behavioral changes, No burning sensations, No confusion, No convulsions, No disequilibrium, No dizziness, No localized weakness, No frequent falls, No headache(s), No lack of coordination, No loss of vision, No memory loss, No numbness, No other visual disturbances, No radicular pain, No restless legs, No sensory deficit, No syncope, No tingling, No tremor(s), No weakness and No other Exam Const General: cooperative Orientation: alert and oriented x3 HENMT Head: normal to inspection Neck Neck: normal visual inspection and full ROM Chest Chest palpation & inspection: normal inspection of the chest Resp Effort & Inspection: normal respiratory effort Auscultation: clear to auscultation bilaterally Cardio Rate: regular rate Rhythm: regular rhythm GI Inspection: non-distended Palpation: soft and nontender Skin General: no rashes or lesions noted Neuro General: patient alert and patient oriented x3 Extrem General: full ROM Psych Appearance: grossly normal Mental Status: mental status grossly normal Assessment and Plan Assessment and Plan (1) Liver mass: Status: Acute Plan: Ultrasound revealed a liver mass and CT was recommended. I triple phase CT was performed and they recommended MRI. I will order this for her. (2) Cholelithiasis: Status: Acute Qualifiers: Cholelithiasis location: gallbladder Cholecystitis presence: without cholecystitis Biliary obstruction: without biliary obstruction Qualified Code(s): K80.20 - Calculus of gallbladder without cholecystitis without obstruction Plan: Patient was in the emergency room with right upper quadrant attack 2 days ago. She says the pain was in her epigastric region and right upper quadrant and felt like pressure. She had an ultrasound which showed cholelithiasis. She says the pain disappeared and has been on for the last 2 days but she does not want to experience another attack like that. I discussed laparoscopic cholecystectomy with her. I discussed the procedure in detail with the patient. I discussed the risks, benefits, and alternatives of the procedure. I discussed the risks including but not limited to bleeding, infection, injury to surrounding organs such as the liver, bile duct, bowels. I did discuss the possibility of having to convert to an open procedure as well as the possibility that if any injuries occurred this may necessitate further surgery at a tertiary care center. Vignesh Euceda MD Pager: [facility] [address] [place] [address], [address] [place] [address] Office: I have examined the patient and the H&P has been reviewed. There are no clinical changes since date of exam.
--- NOTE | 2022-12-31 09:55 | GALL_PTH ---
PATIENT: BECCA SMITH LOC: [facility] [place] U#:[id number] AGE/SX: 32/F ROOM: RE12/31/[address]: Dr. Vignesh Euceda MD : 1990 BED: DIS: 12/31/2022 SPEC #: [id number] RECD: 12/31/22 15:12 STATUS: TITO LAQUITA #: [id number] RAJINDER: 12/31/22 09:[address]: Vignesh Euceda DEPT: SURGICAL PATHOLOGY RECD BY: Sharon Lennon ENTERED: 01/01/23 09:06 SP TYPE: TAYLOR MOELLER DR: Dr. Evelyn Disla MD Tissues: Gallbladder, NOS Procedures: Surgery Specimen Level III HEADER OPERATION: Laparoscopic cholecystectomy PRE-OP DIAGNOSIS: Liver mass, cholelithiasis TISSUE SUBMITTED: Gallbladder MICROSCOPIC DIAGNOSIS Gallbladder, cholecystectomy: Mild chronic cholecystitis, cholelithiasis and cholesterolosis. SJ:shreya 01/02/2023 MICROSCOPIC DESCRIPTION Slides are reviewed. GROSS DESCRIPTION Received is one container labeled with the patient's name and designated gallbladder. The specimen consists of a previously, partially opened gallbladder measuring 6.5 cm in length and 3.0 cm in diameter. The external surface is pink-recinos, smooth and glistening for the most part. Focally it is granular, hemorrhagic and contains cautery artifact. The gallbladder contains a small amount of green-yellow mucoid bile. Present in the gallbladder and also in the container are multiple greenish, mulberry stones measuring in aggregate 3.5 x 3.5 x 0.5 cm and 0.1 to 0.5 cm in greatest dimension. The mucosa also shows several yellowish streaks consistent with cholesterolosis. The gallbladder wall measures up to 0.2 cm in thickness. Maintenance Planner sections from the gallbladder and the cystic duct are submitted in one cassette. / SJ:rg 01/01/2023 TC:3 CPT: 81937
[2022-12-31] MEDS: Cefotetan 2 GM in 0.9% NS 100 ML IV (10:00)
[2022-12-31] MEDS: Bupivacaine 0.25% 30 ML Vial (11:18)
--- NOTE | 2022-12-31 11:36 | PCM.OPRPT ---
Report of Operation Date of Procedure: 12/31/22 Pre-Operative Diagnosis: Cholelithiasis and biliary colic Post-Operative Diagnosis: Same Surgery/Procedure Performed:: Laparoscopic cholecystectomy Type of Anesthesia: General/Regional Specimen's removed: Gallbladder Estimated Blood Loss (mL): 10 Description of Procedure: Patient was brought back to the operating room and general anesthesia was induced. The abdomen was prepped and draped in usual sterile fashion. Midline incision was made superior to the umbilicus and deepened to the fascia. Visiport was used to enter the abdomen under direct visualization. The abdomen is insufflated 15 mmHg. Under direct visualization an epigastric 5 mm port in the right upper quadrant 5 mm port were placed. The umbilical port was then upsized to a 12 mm port. The patient was placed in Trendelenburg position and the gallbladder was elevated toward the right shoulder. The peritoneum was stripped downward toward the infundibulum. The infundibulum was identified and the cystic artery was identified as well as the cystic duct. Cholangiograms were attempted using Watson clamp but the cystic duct appeared to be occluded. It was very deep and too far to dissect down to the area that appeared to be obstructed. The cystic artery was dissected free and clipped and divided. The cystic duct was clipped and divided in the same fashion. The gallbladder was then taken off the gallbladder fossa using electrocautery. There was some spillage of stones and bile. These were collected using suction. The abdomen was irrigated and suctioned dry. The gallbladder was placed into a bag and removed. There was good hemostasis in the gallbladder fossa. The midline port was removed and using a Ovidio Sutton needle the midline fascia was closed with 0 Vicryl suture. Next the abdomen was allowed to desufflate and all the ports were removed. The incisions were injected with local anesthetic. The incisions were closed with interrupted 4-0 Monocryl sutures. Steri-Strips and bandages were applied. Patient was taken to PACU in stable condition. Admit VTE Documentation VTE Mechan Device Prophylaxis: SCD's
--- NOTE | 2022-12-31 11:49 | DCINST_ITS ---
Discharge Instructions Procedure Gallbladder Diet Discharge Diet: Light diet - advance as tolerated Activity Discharge Activity: May Not Drive (for 2-3 days or while taking narcotic pain medications.) and - (Do not drive, work heavy equipment or sign legal documents for 24 hours.) May shower in (days): 1 Lifting Restrictions: 20 lbs for 2 weeks Additional Activity Instructions:: Pain medication may cause nausea. You should typically eat light foods as you take your pain medications. Pain medication may also cause constipation. If this is a problem for you, please discuss with your doctor. Dressing / Incision Call your doctor if your incision/area has: Continuous Slow Oozing, Sudden Increased Bleeding, Increased Pain/ Swelling, Increased Redness and Foul Smelling Discharge Call your doctor if you observe: Fever of 101 or Higher Suture Line Care: Avoid Pulling/Pushing and Avoid Pinching/Bending Remove Dressing in: 2 days Additional Dressing/Incision Instructions:: Leave operative bandaids on for 2 days. When you remove dressing, leave Steri-Strips on until your follow-up appointment, or until the Steri-Strips fall off on their own. Follow Up Care Please Follow Up With: Vignesh Euceda MD When: Please call to schedule 2 week follow up appointment. [phone] Test Results: Test results from this visit will be discussed in further detail at your follow- up appointment, if applicable. Discharge Plan Admission Attending Provider: Vignesh Euceda Primary Care Provider: Evelyn Disla Discharge Orders/Prescriptions Prescriptions: New oxycodone 5 mg Tablet 5 - 10 mg PO Q4H PRN PRN (Reason: Pain Score 4-10/10) 5 Days Qty: 20 0RF Continued acetaminophen [Pain Relief (acetaminophen)] 325 mg tablet 650 mg PO Q4H PRN (Reason: pain) No Action escitalopram oxalate 10 mg tablet 10 mg PO DAILY Patient Comments: 1 TABLET DAILY Other Ambulatory Orders: 12 Lead EKG (Routine) Timeframe: 20221231 Facility: [facility] - Location: Intensive Care Ambulance Paramedic Ordered By: Dr. German Sepulveda Referrals / Follow Up: Evelyn Disla MD [Primary Care Provider] - Disposition Disposition (needs filled in before D/C Order can be placed): Home, Self Care
[2022-12-31] MEDS: oxyCODONE 5 MG Tablet PO (13:14)
[2022-12-31] MEDS: Acetaminophen 325 MG Tablet 650 MG PO (13:14)
== END 2022-12-31 13:36 | disposition home or self-care (01) ==
LOC: SDC 08:21 → AC 08:23
PROVIDERS: Anesthesiology; PCP Internal Medicine; Referring Provider Surgery; Visit Provider Surgery
PROC: (CPT 47610; principal; 2022-12-31 09:35)
DX: K80.10 Calculus of gallbladder with chronic cholecystitis without obstruction (principal); F41.9 Anxiety disorder, unspecified; F32.A Depression, unspecified; Z79.899 Other long term (current) drug therapy
CPT/HCPCS: 47562; 00790; 74300; 76000; 81025; 88304; 93005; J7120; J2405

== ENCOUNTER 2023-01-10 10:58 | Emergency (ER) | payer OTHER, SELFPAY ==
[2023-01-10 10:59] VITALS: BP 125/67; PULSE 85; RESP 14; TEMP 36.2; O2SAT 98; BMI 44.4
--- NOTE | 2023-01-10 11:22 | EDS_ITS ---
HPI History of Present Illness Chief Complaint: Chest Other Informant: patient and spouse/S.O. Narrative Narrative: 32-year-old female presenting to the emergency room with abdominal pain. Patient is postop day 9 from laparoscopic cholecystectomy with Dr. Loyola. Patient states that she was doing well until 2 days ago when she developed pain in the right upper quadrant and is now spread throughout the upper abdomen and occasionally down into the lower abdomen. No fevers. Bowel movements have been normal. No urinary symptoms. She notes nausea but no vomiting. She does note a cough with sputum production. She notes the incisions have been healing well. PFSH PFS Medical History Anxiety delivery delivered Depression Non-smoker Wears glasses Home Medications escitalopram oxalate 10 mg tablet 10 mg PO DAILY 12/16/22 [History Last Taken Unknown] acetaminophen 325 mg tablet (Pain Relief (acetaminophen)) 650 mg PO Q4H PRN pain 12/26/22 [History Last Taken Unknown] oxycodone-acetaminophen 5 mg-325 mg tablet 1 tab PO Q6H PRN PRN Pain 3 days #12 TABLETS 01/10/23 [Rx Last Taken Unknown] Allergy/AdvReac Type Severity Reaction Status Date / Time adhesive tape Allergy Rash Verified 01/10/23 10:59 azithromycin AdvReac itching Verified 01/10/23 10:59 [From Zithromax Z-Anuel] throat Social History Smoking Status: Never smoker alcohol intake: never substance use type: does not use ROS ROS ED Constitutional Constitutional ED: Denies chills, fever(s) or weight loss Eyes Eyes: Denies change in vision or diplopia ENT ENT ED: Denies ear pain, rhinorrhea or sore throat Cardiovascular Cardiovascular: Denies chest pain, orthopnea, palpitations or racing heartbeat Respiratory/Chest Respiratory/Chest: Reports cough and sputum; Denies dyspnea or orthopnea Gastrointestinal Gastrointestinal: Reports abdominal pain and nausea; Denies diarrhea or vomiting Genitourinary Genitourinary ED: Denies dysuria, hematuria or urinary frequency Musculoskeletal Musculoskeletal: Reports neck pain; Denies arthralgias, back pain or myalgias Integumentary Denies abscess or rash Neurologic Neurologic: Denies headache(s) or weakness Psychiatric Psychiatric: Denies anxiety, depression, suicidal ideation or suicidal thoughts Endocrine Endocrinology: Denies polydipsia, polyphagia or polyuria Allergic/Immunologic Allergic/Immunologic ED: Denies mouth swelling, tongue swelling or urticaria EXAM Physical Exam Const Vital Signs: 01/10/23 10:59 01/10/23 12:14 Temperature 97.1 F L 97.1 F L Temperature Source Temporal Oral Pulse Rate 85 85 Respiratory Rate 14 16 Blood Pressure 125/67 H 125/67 H Blood Pressure Mean 86 86 Pulse Ox 98 99 Oxygen Delivery Method Room Air Room Air Positive well nourished, well developed and obese General Appearance ED: well developed Nutritional Appearance: obese HEENT Reports normocephalic, head/scalp atraumatic and moist mucous membranes Eyes PERRL and EOMs intact bilaterally Neck no lymphadenopathy, supple and no JVD Resp normal respiratory effort and clear to auscultation bilaterally Cardio regular rate, regular rhythm and no murmurs GI GI Narrative: For healing laparoscopic surgical sites clean dry intact no secondary signs of infection Inspection: Negative for abdominal distention Auscultation: normoactive bowel sounds Palpation: soft, tender epigastric and RUQ and guarding Back/Spine no CVA tenderness and normal ROM Extremity normal to inspection General Extremety ED: Negative for edema General Extremity: Negative for edema Neuro oriented x3 and CN's II-XII intact bilaterally Sensorium / Orientation: alert Motor Exam: strength 5/5 throughout Psych mental status grossly normal Mood & Affect: Negative for depressed or tearful Skin no rashes or lesions noted and no wounds MDM MDM MDM Narrative Medical decision making narrative: Basic blood work is obtained. There is some elevation in the AST and ALT (203/144) alk phos elevated at 129. Normal lipase. White count is 10.2. Alysis is negative and she is not . CT abdomen pelvis was obtained reviewed by myself and read GI and discussed with on-call surgeon Dr. Kennedy. Dr. Kennedy had previously called and discussed the case with me. Recommendations will be to obtain an ultrasound which was obtained and reviewed with radiology and with Dr. Kennedy again. Patient is doing better after a dose of morphine. At this point we are going to discharge the patient home. Have her follow-up in the office in the next several days. Dr. Kennedy did evaluate the patient here in the department. Lab Data Attestation: I reviewed the patient's lab results. Labs: Laboratory Results - last 24 hr 01/10/23 01/10/23 11:39 12:09 WBC 10.2 RBC 4.63 Hgb 12.4 Hct 37.2 MCV 80.3 L MCH 26.8 L MCHC 33.3 RDW Std Deviation 39.1 RDW Coeff of Shamar 13.4 Plt Count 357 MPV 9.0 Immature Gran % (Auto) 0.500 Neut % (Auto) 75.8 H Lymph % (Auto) 17.1 L Polk % (Auto) 4.9 Eos % (Auto) 1.2 Baso % (Auto) 0.5 Absolute Neuts (auto) 7.7 Absolute Lymphs (auto) 1.74 Nucleated RBC % 0 Sodium 135 L Potassium 3.7 Chloride 104 Carbon Dioxide 24.0 Anion Gap 7 BUN 7 Creatinine 0.77 Estim Creat Clear Calc 82.96 Est GFR (MDRD) Af Amer 111 Est GFR (MDRD) Non-Af 92 BUN/Creatinine Ratio 9.1 L Glucose 116 H Calcium 8.8 Total Bilirubin 0.70 Direct Bilirubin 0.38 H AST 203 H ALT 144 H Alkaline Phosphatase 129 H Total Protein 7.2 Albumin 3.5 Globulin 3.7 Lipase 37 Serum , Qual NEGATIVE Urine Color Yellow Urine Clarity Clear Urine pH 6.0 Ur Specific Weston 1.010 Urine Protein Negative Urine Glucose (UA) Normal Urine Ketones Negative Urine Occult Blood Negative Urine Nitrite Negative Urine Bilirubin Negative Urine Urobilinogen Normal Ur Leukocyte Esterase 25 H Urine RBC 0 SEEN Urine WBC 0-5 SEEN Ur Squamous Epith Cells 0-5 SEEN Urine Bacteria 0 SEEN Urine Mucus 0 SEEN Radiography Diagnostic Testing: Clinical Impression(s) from Imaging Studies Abdomen/Pelvis CT 01/10/23 11:22 IMPRESSION: 1. No focal acute inflammatory process. 2. Contracted gallbladder. 3. Enhancing liver lesion previously investigated by MRI. 4. Mild hepatomegaly and hepatic steatosis. Electronically Signed: Fer Ahn MD at 13:06 EDT , ADDENDUM: 01/10/23 1539 IMPRESSION: undefined Chest X-Ray 01/10/23 12:16 IMPRESSION: No radiographic evidence of acute cardiopulmonary disease. Electronically Signed: Fer Ahn MD at 12:45 EDT , Gallbladder Ultrasound 01/10/23 13:55 IMPRESSION: 1. Status post cholecystectomy. 2. Fluid collection to gallbladder fossa which could represent postoperative changes. Infectious process cannot be excluded. Electronically Signed: Fer Ahn MD at 15:29 EDT , Discharge Plan Triage Chief Complaint: Chest Other Other Complaint: Shortness of Breath ED Provider: Andrea Parada Dx/Rx/DC Orders Clinical Impression: Visit for wound check, Abdominal pain, acute, Acute postoperative pain Instructions: ED Post Op Wound Check, Pain Prescriptions: New oxycodone-acetaminophen [oxycodone-acetaminophen] 5-325 mg tablet 1 tab PO Q6H PRN PRN (Reason: Pain) 3 Days Qty: 12 0RF No Action escitalopram oxalate 10 mg tablet 10 mg PO DAILY Patient Comments: 1 TABLET DAILY acetaminophen [Pain Relief (acetaminophen)] 325 mg tablet 650 mg PO Q4H PRN (Reason: pain) Primary Care Provider: Care Physician,No Primary Referrals: Vignesh Euceda MD [Med Staff - Active Staff] - As soon as possible (Goal will be to have you evaluated with Dr. Kevan Severino in the next few days in the office. In the interim if you are worsening or have any concerns please return to emergency) Evelyn Disla MD [Med Staff - Crude Oil Treater] - Disposition Disposition: Home, Self Care
--- NOTE | 2023-01-10 11:22 | CT_ITS ---
STUDY: CT ABDOMEN AND PELVIS WITH CONTRAST REASON FOR EXAM: Female, 32 years old. Abdominal pain RADIATION DOSAGE (If Supplied By Facility): CTDIvol = ( 17.06 ) mGy, DLP = ( 1305.88 ) mGycm TECHNIQUE: IV 100mL Isovue-370 was administered. Transaxial images were obtained from the dome of the diaphragm to the symphysis pubis. Multiplanar coronal and sagittal images were reformatted. Individualized Dose Optimization Techniques Were Used For This CT. COMPARISON: Prior study dated: 12/16/2022. FINDINGS: 5 mm right lower lobe nodule partially visualized on image 1 series 2. The lungs are otherwise clear. The visualized portions of the heart are within normal limits. Hepatomegaly and mild hepatic steatosis. Enhancing mass in the posterior segment of the right lobe of the liver unchanged previously investigated by recent MRI. Contracted gallbladder. Normal spleen. Normal pancreas. Normal bilateral adrenal glands. Normal visualized stomach. Normal small intestine. Fecal retention. No evidence of acute diverticulitis. The appendix is visualized and appears normal. Normal abdominal aorta. No retroperitoneal adenopathy. Normal right kidney. Normal left kidney. Normal urinary bladder. Normal abdominal wall. Normal osseous structures. CT/Abdomen/Pelvis W IV Cont ONLY IMPRESSION: 1. No focal acute inflammatory process. 2. Contracted gallbladder. 3. Enhancing liver lesion previously investigated by MRI. 4. Mild hepatomegaly and hepatic steatosis. Electronically Signed: Fer Ahn MD at 13:06 EDT ,
[2023-01-10] MEDS: Ondansetron 4 MG/2 ML Vial IV (11:34)
[2023-01-10] MEDS: Morphine 4 MG/ML Syringe IV (11:34)
[2023-01-10 11:46] LABS: Absolute Lymphocyte Count 1.74 X10^3/uL (0.83-4.51); Absolute Neutrophil Count 7.7 X10^3/uL (2.0-7.7); Basophil# 0.05 X10^3/uL; Basophil% 0.5 % (0-1); Eosinophil# 0.12 X10^3/uL; Eosinophils% 1.2 % (0-5); Hematocrit 37.2 % (37-47); Hemoglobin 12.4 g/dL (12.0-15.0); Lymphocyte # 1.74 X10^3/ul (0.83-4.51); Lymphocyte % 17.1 % (19-41); Mean Corp Hgb Conc 33.3 g/dL (32-36); Mean Corpuscular Hgb 26.8 pg (27.0-32.0); Mean Corpuscular Volume 80.3 fL (81-99); Monocyte% 4.9 % (0-10); NRBC Flagged by Analyzer 0 % (0-5); Neutrophil # 7.69 X10^3/uL (2.7-7.7); Neutrophil % 75.8 % (47-70); Platelet Count 357 K/mm3 (150-450); RBC Distribution Width CV 13.4 % (11.6-14.6); RBC Distribution Width SD 39.1 fl (35.1-43.9); Red Blood Count 4.63 M/mm3 (4.2-5.4); White Blood Count 10.2 K/mm3 (4.4-11.0)
[2023-01-10 12:05] LABS: AST(SGOT) 203 U/L (15-37); Alanine Aminotransfer ALT/SGPT 144 U/L (13-56); Albumin, Serum 3.5 g/dL (3.2-5.0); Alkaline Phosphatase 129 U/L (45-117); Anion Gap 7 (5-15); BUN 7 mg/dL (7-18); BUN/Creat Ratio 9.1 RATIO (10-20); Bilirubin, Direct 0.38 mg/dL (0.00-0.30); Calcium,Total 8.8 mg/dL (8.5-10.1); Chloride 104 mmol/L (98-107); Creatinine, Serum 0.77 mg/dL (0.55-1.02); EST Glomerular Filtration Rate 92 mL/min (>60); Est Glom Filt Rate - Afr Amer 111 mL/min (>60); Estimated Creatinine Clearance 82.96 ml/min; Globulin 3.7 g/dL (2.2-4.2); Glucose 116 mg/dL (74-106); Lipase 37 U/L (13-75); Potassium 3.7 mmol/L (3.5-5.1); Protein, Total 7.2 g/dL (6.4-8.2); Sodium Level 135 mmol/L (136-145)
[2023-01-10 12:14] VITALS: BP 125/67; PULSE 85; RESP 16; TEMP 36.2; O2SAT 99
[2023-01-10 12:14] LABS: Internal QC Validated? YES +Cl - CLEAR BKGD; Pregnancy, Serum, hCG Quali. NEGATIVE Negative
--- NOTE | 2023-01-10 12:16 | RAD_ITS ---
INDICATION: cough EXAMINATION/TECHNIQUE: X-RAY - XR Chest 1 View COMPARISON: 12/16/2022. FINDINGS: LINES/DEVICES: None. LUNGS: No consolidation, edema or effusion. No pneumothorax. MEDIASTINUM AND CARDIOVASCULAR STRUCTURES: Cardiac silhouette not enlarged. Central airways and mediastinal contour are unremarkable. BONES AND SOFT TISSUES: Unremarkable. RAD/Chest 1 View (Portable) IMPRESSION: No radiographic evidence of acute cardiopulmonary disease. Electronically Signed: Fer Ahn MD at 12:45 EDT ,
[2023-01-10 12:17] LABS: Bacteria 0 SEEN /hpf (None Seen); Mucous, Urine 0 SEEN /hpf (<or=2+); Red Blood Cells-Urine 0 SEEN /hpf (0-5)
[2023-01-10 12:20] LABS: Color, Urine Yellow (Yellow); Glucose, Dipstick Normal (Normal); Ketone-Dipstick Negative (Negative); Leukocyte Esterase-Dipstick 25 /ul (Negative); Nitrite-Dipstick Negative (Negative); Occult Blood-Urine Negative /ul (Negative); Protein-Dipstick Negative (Negative); Urine Bilirubin Dipstick Negative (Negative); Urine Clarity Clear (Clear); Urine Urobilinogen Normal (Normal)
[2023-01-10 12:29] LABS: Squamous Epithelial Cells - UA 0-5 SEEN /hpf (5-10); White Blood Cells 0-5 SEEN /hpf (0-5)
--- NOTE | 2023-01-10 13:55 | US_ITS ---
INDICATION: S/P cholecystectomy pain EXAMINATION: Ultrasound US Abdomen Limited (quadrant) TECHNIQUE: Khan scale and color doppler imaging was performed of the right upper quadrant. COMPARISON: CT scan of the abdomen pelvis of the same day. FINDINGS: LIVER: There is moderate increased echogenicity. The liver is enlarged measuring about 23 cm in length. The portal vein is patent with normal hepatopedal flow. 3.6 x 3.2 x 2.5 cm right lobe liver mass corresponding to the CT and MRI abnormality. There is no free fluid. GALLBLADDER AND BILIARY TREE: Status post cholecystectomy. Mild fluid collection in the gallbladder fossa measuring about 5.5 x 1.6 cm could represent postoperative changes. Infectious process cannot be excluded. The proximal common bile duct measures 2.3 mm, which is within normal limits for the patient''s age. PANCREAS: No focal abnormality is demonstrated in the pancreas. No pancreatic ductal dilatation. The right kidney measures 11.7 cm in length. The renal cortex measures 1.2 cm. No evidence of hydronephrosis. US/Gallbladder IMPRESSION: 1. Status post cholecystectomy. 2. Fluid collection to gallbladder fossa which could represent postoperative changes. Infectious process cannot be excluded. Electronically Signed: Fer Ahn MD at 15:29 EDT ,
[2023-01-10 16:29] VITALS: BP 138/88; PULSE 68; RESP 16
== END 2023-01-10 16:29 | disposition home or self-care (01) ==
PROVIDERS: Emergency Provider Emergency Medicine; Visit Provider Emergency Medicine
DX: R10.9 Unspecified abdominal pain (principal); G89.18 Other acute postprocedural pain; E66.9 Obesity, unspecified; F41.9 Anxiety disorder, unspecified; F32.A Depression, unspecified; Z79.899 Other long term (current) drug therapy
CPT/HCPCS: 71045; 74177; 76705; 80048; 80076; 81001; 83690; 84703; 85025; 96374; 96375; 99282; J7030; Q9967; J2405

== ENCOUNTER 2023-01-17 06:10 | Emergency (ER) | payer OTHER, SELFPAY ==
[2023-01-17 06:12] VITALS: BP 159/92; PULSE 59; RESP 26; TEMP 36.7; O2SAT 98; BMI 44.9
--- NOTE | 2023-01-17 06:53 | EDS_ITS ---
HPI HPI - GI History of Present Illness Chief Complaint: Abd Pain Informant: patient Narrative Narrative: Continue waxing waning abdominal pain for the past month. Initially seen in the ED end of November from her gallstones. She followed up with surgery, status post elective cholecystectomy 12/[address] Euceda. She went home the same day. She states since then would have continued intermittent pain worse with eating. She had decreased appetite. Symptoms worse with foods. She had a in October with no complications. 3 menstrual period since then last time a week ago was abnormal. Denies fevers. She has not had her postop follow-up due to the her doctor being on vacation. Denies any hematemesis. Denies fevers or chills. PFSH PFSH Medical History Anxiety delivery delivered Depression Non-smoker Wears glasses Medical History no medical history Home Medications escitalopram oxalate 10 mg tablet 10 mg PO DAILY 12/16/22 [History Last Taken Unknown] acetaminophen 325 mg tablet (Pain Relief (acetaminophen)) 650 mg PO Q4H PRN pain 12/26/22 [History Last Taken Unknown] oxycodone-acetaminophen 5 mg-325 mg tablet 1 tab PO Q6H PRN PRN Pain 3 days #12 TABLETS 01/10/23 [Rx Last Taken Unknown] Allergy/AdvReac Type Severity Reaction Status Date / Time adhesive tape Allergy Rash Verified 01/17/23 06:12 azithromycin AdvReac itching Verified 01/17/23 06:12 [From Zithromax Z-Anuel] throat Surgical History (Updated 01/17/23 @ 06:13 by Ravinder Castro) S/P cholecystectomy Social History Smoking Status: Never smoker alcohol intake: never substance use type: does not use ROS ROS ED Constitutional Constitutional ED: Denies chills, fever(s) or sweats Eyes Eyes: Denies change in vision ENT ENT ED: Denies dysphagia or sore throat Cardiovascular Cardiovascular: Denies chest pain, leg edema, palpitations or racing heartbeat Respiratory/Chest Respiratory/Chest: Denies cough, dyspnea or dyspnea on exertion Gastrointestinal Gastrointestinal: Reports abdominal pain and nausea; Denies diarrhea or vomiting Genitourinary Genitourinary ED: Denies dysuria, hematuria or urinary frequency Musculoskeletal Musculoskeletal: Denies back pain, extremity pain or neck pain Integumentary Denies rash or wounds Neurologic Neurologic: Denies headache(s), paresthesias or weakness EXAM Physical Exam Const Vital Signs: 01/17/23 06:12 Temperature 98.1 F Temperature Source Oral Pulse Rate 59 L Respiratory Rate 26 H Blood Pressure 159/92 H Blood Pressure Mean 114 Pulse Ox 98 Oxygen Delivery Method Room Air Positive well nourished and well developed Constitutional Narrative: Tearful, uncomfortable, nontoxic. General Appearance ED: well developed HEENT Reports moist mucous membranes normocephalic and atraumatic Eyes PERRL, EOMs intact bilaterally and conjunctivae normal General Eye ED: Yes normal appearance of both eyes Neck no lymphadenopathy and supple General: Negative for tenderness Chest Wall Chest: Negative for tenderness Resp normal respiratory effort and normal air movement Effort and Inspection: symmetric chest movement; Negative for respiratory distress Cardio regular rate, regular rhythm and no murmurs Peripheral Pulses: pulses 2+ throughout GI normal to inspection, nondistended, normoactive bowel sounds GI Narrative: Tender epigastrium, no guarding or rebound. Laparoscopic incisions with Steri- Strips clean, dry, intact. Palpation: Negative for guarding or rebound tenderness present Back/Spine no CVA tenderness and no thoracic nor lumbar tenderness Extremity normal to inspection General Extremety ED: Negative for edema or tenderness General Extremity: Negative for edema Neuro oriented x3 and no sensory deficits noted Sensorium / Orientation: awake and alert Skin no rashes or lesions noted and no wounds MDM MDM MDM Narrative Medical decision making narrative: Interventions / MDM: Differential diagnosis: Postop infection, pancreatitis, choledocholithiasis, Gastritis Diagnosis considered but do not suspect: N/A My EKG interpretation: N/A Imaging independently reviewed and interpreted by myself: CT abdomen pelvis IV and oral contrast:pending External documents reviewed: N/A Test considered but not ordered:N/A ED course: Patient vital stable nontoxic postop pain meds been waxing and waning. We will check abdominal labs, morphine Zofran IV fluids ordered. CT scan ordered for further evaluation. 0800: White count returned at 8 AM 0.99, lipase 50 elevated liver enzymes with elevated direct bilirubin. CT is pending. Patient signed out to oncoming physician, Dr. Mills. Re-evaluation: Disposition discussed with patient/family/significant other: Patient and mother Case discussed with consulting clinician: N/A This note was generated with [employer] dictation software. It may contain incorrect words, spelling, and punctuation that were not noted in checking the note before signing. Lab Data Attestation: I reviewed the patient's lab results. Labs: Laboratory Results - last 24 hr 01/17/23 07:00 WBC 8.0 RBC 4.55 Hgb 12.9 Hct 38.0 MCV 83.5 MCH 28.4 MCHC 33.9 RDW Std Deviation 41.2 RDW Coeff of Shamar 14.2 Plt Count 392 MPV 9.7 Immature Gran % (Auto) 1.300 H Neut % (Auto) 75.8 H Lymph % (Auto) 14.6 L [place] % (Auto) 6.0 Eos % (Auto) 1.3 Baso % (Auto) 1.0 Absolute Neuts (auto) 6.1 Absolute Lymphs (auto) 1.16 Nucleated RBC % 0 Sodium 133 L Potassium 3.7 Chloride 103 Carbon Dioxide 25.0 Anion Gap 5 BUN 7 Creatinine 0.67 Estim Creat Clear Calc 95.34 Est GFR (MDRD) Af Amer 132 Est GFR (MDRD) Non-Af 109 BUN/Creatinine Ratio 10.5 Glucose 159 H Calcium 8.9 Total Bilirubin 3.00 H Direct Bilirubin 2.52 H AST 62 H ALT 170 H Alkaline Phosphatase 129 H Total Protein 7.0 Albumin 3.4 Globulin 3.6 Lipase 50 Serum , Qual NEGATIVE Radiography Diagnostic Testing: Clinical Impression(s) from Imaging Studies Abdomen/Pelvis CT 01/17/23 07:44 IMPRESSION: There are some concerning changes in the right upper quadrant since the previous study of 01/10/2023. There is now conspicuous intra and extrahepatic biliary dilatation representing significant change since a study from one week ago. No retained stone is identified within the common bile duct but findings are concerning for perhaps a nonradiopaque retained stone or postoperative stricture. Additionally, there is evidence of low-density fluid in the gallbladder fossa which extends along the periphery of the pancreas. The pancreas is also changed slightly since the previous study. It is heterogeneous and a pancreatitis cannot be excluded. This could also be related to a possible CBD stricture or retained stone Stable hyperdense hemangioma in the right lobe of the liver Retained stool in the colon No free air or suspicious adenopathy. Normal appendix visualized Surgical consultation recommended Electronically Signed: Mitch Acosta MD at 9:47 EDT , Discharge Plan Triage Chief Complaint: Abd Pain ED Provider: Dave Duque Dx/Rx/DC Orders Clinical Impression: Other acute postprocedural pain, Abdominal pain Prescriptions: No Action escitalopram oxalate 10 mg tablet 10 mg PO DAILY Patient Comments: 1 TABLET DAILY acetaminophen [Pain Relief (acetaminophen)] 325 mg tablet 650 mg PO Q4H PRN (Reason: pain) oxycodone-acetaminophen [oxycodone-acetaminophen] 5-325 mg tablet 1 tab PO Q6H PRN PRN (Reason: Pain) 3 Days Qty: 12 0RF Primary Care Provider: Care Physician,No Primary Referrals: Care Physician,No Primary [Primary Care Provider] - Disposition Disposition: Acute Care Hospital Discharge Location: [facility] Discharge Date/Time: 01/17/23 17:19
[2023-01-17 07:14] LABS: Absolute Lymphocyte Count 1.16 X10^3/uL (0.83-4.51); Absolute Neutrophil Count 6.1 X10^3/uL (2.0-7.7); Basophil# 0.08 X10^3/uL; Eosinophils% 1.3 % (0-5); Hemoglobin 12.9 g/dL (12.0-15.0); Lymphocyte # 1.16 X10^3/ul (0.83-4.51); Lymphocyte % 14.6 % (19-41); Mean Corp Hgb Conc 33.9 g/dL (32-36); Mean Corpuscular Hgb 28.4 pg (27.0-32.0); Mean Corpuscular Volume 83.5 fL (81-99); Mean Platelet Vol. 9.7 fl (6.2-12.0); Monocyte# 0.48 X10^3/uL; NRBC Flagged by Analyzer 0 % (0-5); Neutrophil # 6.05 X10^3/uL (2.7-7.7); Neutrophil % 75.8 % (47-70); Platelet Count 392 K/mm3 (150-450); RBC Distribution Width CV 14.2 % (11.6-14.6); RBC Distribution Width SD 41.2 fl (35.1-43.9); Red Blood Count 4.55 M/mm3 (4.2-5.4)
[2023-01-17] MEDS: Morphine 4 MG/ML Syringe IV ×2 (07:20→11:42)
[2023-01-17] MEDS: Ondansetron 4 MG/2 ML Vial IV (07:20)
[2023-01-17] MEDS: 0.9% Normal Saline (1000mL) 1,000 ML 1000 ML IV (07:20)
[2023-01-17 07:29] LABS: Internal QC Validated? YES +Cl - CLEAR BKGD; Pregnancy, Serum, hCG Quali. NEGATIVE Negative; Record Kit Lot#, Serum Preg. HCG0000667200
[2023-01-17 07:31] LABS: AST(SGOT) 62 U/L (15-37); Alanine Aminotransfer ALT/SGPT 170 U/L (13-56); Albumin, Serum 3.4 g/dL (3.2-5.0); Alkaline Phosphatase 129 U/L (45-117); Anion Gap 5 (5-15); BUN 7 mg/dL (7-18); BUN/Creat Ratio 10.5 RATIO (10-20); Bilirubin, Direct 2.52 mg/dL (0.00-0.30); Calcium,Total 8.9 mg/dL (8.5-10.1); Chloride 103 mmol/L (98-107); Creatinine, Serum 0.67 mg/dL (0.55-1.02); EST Glomerular Filtration Rate 109 mL/min (>60); Est Glom Filt Rate - Afr Amer 132 mL/min (>60); Estimated Creatinine Clearance 95.34 ml/min; Globulin 3.6 g/dL (2.2-4.2); Glucose 159 mg/dL (74-106); Lipase 50 U/L (13-75); Potassium 3.7 mmol/L (3.5-5.1); Sodium Level 133 mmol/L (136-145)
--- NOTE | 2023-01-17 07:44 | CT_ITS ---
STUDY: CT ABDOMEN AND PELVIS WITH CONTRAST REASON FOR EXAM: Female, 32 years old. Postop pain RADIATION DOSAGE (If Supplied By Facility): CTDIvol = ( 17.05 ) mGy, DLP = ( 1249.85 ) mGycm TECHNIQUE: Transaxial images were obtained from the dome of the diaphragm to the symphysis pubis with oral contrast. Oral and amp; IV Gastrografin and amp; 100mL Isovue-370 was administered. Sagittal and coronal images were reconstructed. Individualized dose optimization techniques were used for this CT. COMPARISON: 01/10/2023 FINDINGS: The visualized lung bases are unremarkable. The visualized portions of the heart are within normal limits. Mild fatty infiltration of liver is noted with persistent evidence of a hyperdense likely hemangioma in the right lobe. There is now conspicuous intrahepatic and extrahepatic biliary dilatation that was not present on the previous study. There is associated new free fluid in the gallbladder fossa and along the periphery of the pancreas. The extrahepatic common bile duct has increased from 2 to 3 mm on the previous exam to 1.15 cm on current study. The significant and short term increase in biliary dilatation suggests the possibility of postoperative bile duct stricture or nonradiopaque retained stone. There is no CT evidence of calcification within the CBD... Additionally, the pancreas is heterogeneous and slightly larger than on the previous study, and the associated peripancreatic fluid suggests pancreatitis which could also be due to an obstructed CBD. The gallbladder is surgically absent. Spleen is unremarkable, stable appearance of a 1 cm accessory spleen. Normal bilateral adrenal glands. Normal right kidney. Normal left kidney. Normal visualized stomach. Normal small intestine. Retained stool noted in the colon. The appendix is visualized and appears normal. Appendix seen on coronal reconstructed images 57 through 63 Normal abdominal aorta. Normal inferior vena cava. Normal retroperitoneum. Normal urinary bladder. Normal-appearing uterus. No suspicious adnexal mass or free fluid. Normal abdominal wall. Normal osseous structures. CT/Abdomen/Pelvis WITH Contrast IMPRESSION: There are some concerning changes in the right upper quadrant since the previous study of 01/10/2023. There is now conspicuous intra and extrahepatic biliary dilatation representing significant change since a study from one week ago. No retained stone is identified within the common bile duct but findings are concerning for perhaps a nonradiopaque retained stone or postoperative stricture. Additionally, there is evidence of low-density fluid in the gallbladder fossa which extends along the periphery of the pancreas. The pancreas is also changed slightly since the previous study. It is heterogeneous and a pancreatitis cannot be excluded. This could also be related to a possible CBD stricture or retained stone Stable hyperdense hemangioma in the right lobe of the liver Retained stool in the colon No free air or suspicious adenopathy. Normal appendix visualized Surgical consultation recommended Electronically Signed: Mitch Acosta MD at 9:47 EDT ,
[2023-01-17 10:06] VITALS: BP 129/74; PULSE 84; RESP 16; O2SAT 98
[2023-01-17] MEDS: Piperacil/Tazobactam 4.5 GM in 0.9% Normal Saline (100mL MB+) 100 ML IV (10:58)
[2023-01-17 11:02] VITALS: BP 127/48; PULSE 53; RESP 18; O2SAT 98
[2023-01-17 13:00] VITALS: BP 112/61; PULSE 56; RESP 18; O2SAT 95
[2023-01-17 14:02] VITALS: BP 112/61; PULSE 65; RESP 18; O2SAT 93
== END 2023-01-17 17:19 | disposition short-term general hospital (02) ==
LOC: ED 06:49
PROVIDERS: Emergency Provider Emergency Medicine; Visit Provider Emergency Medicine
DX: G89.18 Other acute postprocedural pain (principal); R10.9 Unspecified abdominal pain; F41.9 Anxiety disorder, unspecified; F32.A Depression, unspecified; Z79.899 Other long term (current) drug therapy
CPT/HCPCS: 74177; 80048; 80076; 83690; 84703; 85025; 96365; 96375; 96376; 99284; J7030; Q9967; A4216; J2405

== ENCOUNTER 2023-04-01 07:41 | Emergency (ER) | payer OTHER, SELFPAY ==
[2023-04-01 07:42] VITALS: BP 126/78; PULSE 64; RESP 14; TEMP 36.4; O2SAT 98; BMI 42.1
--- NOTE | 2023-04-01 07:49 | EDS_ITS ---
HPI History of Present Illness Chief Complaint: Eye Problem [facility] Medical History Anxiety delivery delivered Depression Non-smoker Wears glasses Medical History no medical history Home Medications escitalopram oxalate 10 mg tablet 10 mg PO DAILY 12/16/22 [History Last Taken Unknown] acetaminophen 325 mg tablet (Pain Relief (acetaminophen)) 650 mg PO Q4H PRN pain 12/26/22 [History Last Taken Unknown] oxycodone-acetaminophen 5 mg-325 mg tablet 1 tab PO Q6H PRN PRN Pain 3 days #12 TABLETS 01/10/23 [Rx Last Taken Unknown] Allergy/AdvReac Type Severity Reaction Status Date / Time adhesive tape Allergy Rash Verified 04/01/23 07:42 azithromycin AdvReac itching Verified 04/01/23 07:42 [From Zithromax Z-Anuel] throat Surgical History (Updated 01/17/23 @ 06:13 by Ravinder Castro) S/P cholecystectomy Social History Smoking Status: Never smoker alcohol intake: never substance use type: does not use EXAM Physical Exam Const Vital Signs: 04/01/23 07:42 Temperature 97.6 F L Temperature Source Temporal Pulse Rate 64 Respiratory Rate 14 Blood Pressure 126/78 H Blood Pressure Mean 94 Pulse Ox 98 Oxygen Delivery Method Room Air MDM MDM MDM Narrative Medical decision making narrative: HISTORY OF PRESENT ILLNESS: 32-year-old female here with concern for left eye pain and swelling. Notes eye redness along the lash line states there continues to be swelling. Notes over the weekend she did use mascara which caused irritation. This has since increased over the last 3 to 4 days makes her think she may have an infection. Notes blurry vision. No loss of vision no recent trauma. She also complains of headache. REVIEW OF SYSTEMS: Pertinent positives: Eye pain Pertinent negatives: Loss of vision, fever, vomiting PHYSICAL EXAM: Nursing triage notes reviewed, Vital signs reviewed Constitutional: please see mdm HENT: MMM Eyes: Pupils equal round and reactive to light, Extraocular muscles intact, erythema noted over the superior eyelid, no obvious fluctuance or induration Skin: No rash or lesions noted Alert and oriented x3, neuro exam at baseline, cranial nerves II through XII are intact. No pain with extraocular muscle movement. There is negative test of skew. 5 of 5 strength in upper and lower extremities in flexion extension. Intact sensation to light touch in upper and lower extremity dermatomes. No truncal or extremity ataxia. No dysdiadochokinesia. Normal gait. 2+ reflexes in upper and lower extremities. No meningeal signs. Negative Babinski. NIH of 0. MEDICAL DECISION MAKING: Chief Complaint: Eye pain External records reviewed: Prior records reviewed: Last ED visit in December for abdominal pain MDM Narrative: Patient was hemodynamically stable, afebrile, nontoxic-appearing. I considered the following differential diagnosis: Orbital cellulitis, preseptal cellulitis, hordeolum chalazion, dacryocystitis Exam most consistent with likely preseptal cellulitis. There is no pain with extraocular muscle movements, no evidence of proptosis or decreased visual acuity 6 to suggest orbital cellulitis. Patient was hemodynamically stable there is no indication for advanced imaging at this time. Exam was not consistent with dacryocystitis, chalazion, or hordoleum. The patient and/or family, caregivers express understanding. The patient and/or family, caregivers agrees with the plan. Shared decision making: I will have a discussion with the patient and or visitors regarding risk/benefits of further testing or admission. They will be made aware of of the risk/benefits inherent in this decision they will be given the opportunity to voice understanding. Total critical care time today provided was at least 0 minutes. This excludes separately billable procedures. Critical care time (if documented) is secondary to the patient having high probability of clinically significant/life threatening deterioration in the patient's condition which required my urgent intervention. Impression: 1. Preseptal cellulitis Dispo: Discharge Discharge Plan Triage Chief Complaint: Eye Problem ED Provider: Stiven Rose Dx/Rx/DC Orders Prescriptions: No Action escitalopram oxalate 10 mg tablet 10 mg PO DAILY Patient Comments: 1 TABLET DAILY acetaminophen [Pain Relief (acetaminophen)] 325 mg tablet 650 mg PO Q4H PRN (Reason: pain) oxycodone-acetaminophen [oxycodone-acetaminophen] 5-325 mg tablet 1 tab PO Q6H PRN PRN (Reason: Pain) 3 Days Qty: 12 0RF Primary Care Provider: Evelyn Disla Referrals: Care Physician,No Primary [Non-Staff] -
[2023-04-01] MEDS: Amox/Clavulanate 875 MG Tablet PO (08:31)
== END 2023-04-01 08:35 | disposition home or self-care (01) ==
PROVIDERS: Emergency Provider Emergency Medicine; PCP Internal Medicine; Visit Provider Emergency Medicine
DX: L03.213 Periorbital cellulitis (principal)
CPT/HCPCS: 99282